=== PATIENT | female | born 1975 | race Caucasian/White ===

== ENCOUNTER → 2016-04-17 | Outpatient (CLI) | payer OTHER ==
[~2016-04-17] MED LIST: BACL10TA PO; BCPILLS PO; BUPR200T2 PO; CHOL2000 PO; CHOL4POW4 PO; CIPR-255 PO; ESCI1TAB10 PO; HYDR-5688 PO; HYDR200T5 PO; LEFL20TA PO; LISD30CA4 PO; LORA-741 PO; MAXALT; MELO7.5T5 PO; METO-157 PO; ONDA4TAB10 SL; PRD/1 PO; PRED20TA PO; PREG1CAP28 PO; PREG1CAP70 PO; PRLSR20 PO; PROM25TA9 PO; SUCR5SUS PO; VOLTAREN TOP
--- NOTE | 2016-04-17 12:53 | DIAGNOSTIC IMAGING REPORT ---
ABDOMINAL ULTRASOUND COMPLETE HISTORY: Pain. Nausea. RUQ PAIN,NAUSEA,VOMITING. COMPARISON: None. FINDINGS: Pancreas: The pancreas demonstrates a normal echotexture. Liver: Unremarkable. Gallbladder: 2 cm gallstone region of the gallbladder neck. Gallbladder wall normal in terms of thickness. No pericholecystic fluid CBD: 3 mm Kidneys: No hydronephrosis. Spleen: Normal in size. Aorta: Normal in caliber. IVC: Patent. IMPRESSION: Gallstones within the gallbladder lumen. Normal caliber bile duct. Otherwise negative study Electronically signed by: Jeremías Hernandez M.D. 04/17/2016 12:51 PM Dictated Date/Time: 04/17/2016 12:49 PM
[2016-04-17 13:32] LABS: MEAN CELL VOLUME 91.1 fL (80-100); MEAN CORPUSCULAR HGB CONC 31.8 g/dl (32-36); MEAN PLATELET VOLUME 10.8 fL (7.4-10.4); PLATELET COUNT 282 K/uL (130-400); RED BLOOD COUNT 4.28 M/uL (4.2-5.4); WHITE BLOOD COUNT 6.18 K/uL (4.8-10.8)
[2016-04-17 13:48] LABS: ALT/SGPT 26 U/L (12-78); AST/SGOT 11 U/L (15-37); BLOOD UREA NITROGEN 6 mg/dl (7-18); BUN/CREATININE RATIO 9.2 (10-20); CALCIUM 8.5 mg/dl (8.5-10.1); CARBON DIOXIDE 30 mmol/L (21-32); CHLORIDE 109 mmol/L (98-107); CREATININE 0.69 mg/dl (0.60-1.20); GLUCOSE 87 mg/dl (70-99); POTASSIUM 3.8 mmol/L (3.5-5.1); SODIUM 144 mmol/L (136-145)
[2016-04-17 13:51] LABS: ALB/GLOB RATIO 1.3 (0.9-2); ALKALINE PHOSPHATASE 48 U/L (45-117); C-REACTIVE PROTEIN < 0.29 mg/dl (0-0.29)
== END | disposition home or self-care (01) ==
LOC: C.ULTRBC 09:36
PROVIDERS: ATTEND Family Medicine
DX: R10.11 Right upper quadrant pain (principal); R11.10 Vomiting, unspecified

== ENCOUNTER 2016-04-21 18:51 | Observation (INO) | payer OTHER ==
[~2016-04-21] VITALS: Ht 165.1 cm; Wt 84.4 kg
[~2016-04-21 18:51] MED LIST changes: -BACL10TA PO; -CHOL2000 PO; -CHOL4POW4 PO; -CIPR-255 PO; -ESCI1TAB10 PO; -HYDR-5688 PO; -HYDR200T5 PO; -LEFL20TA PO; -LORA-741 PO; -MELO7.5T5 PO; -METO-157 PO; -ONDA4TAB10 SL; -PRD/1 PO; -PRED20TA PO; -PREG1CAP28 PO; -PREG1CAP70 PO; -PRLSR20 PO; -PROM25TA9 PO; -SUCR5SUS PO; -VOLTAREN TOP
[2016-04-21 20:00] VITALS: BP 116/78; PULSE 63; TEMP 37.1; O2SAT 100; Ht 165.1 cm; Wt 84.4 kg
[2016-04-21] MEDS ORDERED: ALUMINUM/MAGNESIUM/SIMETH (MAALOX MAX) 30 ML UDC PO PRN (20:30)
[2016-04-21] MEDS ORDERED: ZOLPIDEM TARTRATE 5 MG TAB PO PRN (20:30)
[2016-04-21] MEDS ORDERED: SUCRALFATE 1 GM/10 ML UDC PO ONE (20:45)
--- NOTE | 2016-04-21 20:52 | History and Physical ---
History & Physical Date of Service Apr 21, 2016. History & Physical epigastric pain , nausea, possible biliary dyskinesia, or gastritis, or PUD new right scapular area muscle pain , reproducible, likely musculoskeletal, tylenol as needed for pain I ordered Ddimer, and Ce and tn, b/c hx of lupus and is on OCP for contraception which incresed the risks of thromboembolic disease HIDA Scan if positive will have surgeon consult, if neg will need GI consult, not order yet [id number]
[2016-04-21] MEDS: ACETAMINOPHEN 325 MG TAB PO PRN (20:53)
[2016-04-21] MEDS ORDERED: MELOXICAM 7.5 MG TAB PO PRN (21:00)
[2016-04-21] MEDS ORDERED: IV FLUIDS COMPLETED PRN (21:00)
[2016-04-21] MEDS: HYDROXYCHLOROQUINE SULFATE 200 MG TAB PO SCH (21:00)
[2016-04-21] MEDS ORDERED: PATIENT'S HEIGHT AND/OR WEIGHT NEEDED SCH (21:00)
[2016-04-21] MEDS: PREGABALIN 150 MG CAP PO SCH (21:00)
[2016-04-21] MEDS: ESCITALOPRAM OXALATE 20 MG TAB PO SCH (21:00)
[2016-04-21] MEDS ORDERED: CONSULT PHARMACY STA (21:03)
[2016-04-21] MEDS ORDERED: RANITIDINE HCL 150 MG TAB PO ONE (21:15)
[2016-04-21] MEDS ORDERED: PANTOprazole SOD 40 MG TAB PO ONE (21:15)
[2016-04-21] MEDS: LEFLUNOMIDE 10 MG TAB PO SCH (21:15)
[2016-04-21 21:37] LABS: INR 1.1 (0.9-1.1); PARTIAL THROMBOPLASTIN RATIO 1.1; PROTHROMBIN TIME (PATIENT) 11.6 SECONDS (9.0-12.0)
[2016-04-21] MEDS: ONDANSETRON INJ 2 MG/ML 2 ML VIAL IV PRN (21:39)
[2016-04-21 21:56] LABS: THYROID STIMULATING HORMONE 0.714 uIu/ml (0.300-4.500)
--- NOTE | 2016-04-21 22:15 | HISTORY & PHYSICAL EXAMINATION ---
DATE OF ADMISSION: 04/21/2016 This is observation H\T\P, 20 minutes. CHIEF COMPLAINT: Epigastric pain, nausea. HISTORY OF PRESENT ILLNESS: The patient is a 41-year-old white female with a significant past medical history of lupus, venous insufficiency and depression who is direct admission because of the above chief complaint. The patient reported epigastric pain associated with nauseation which was about 10-12 days ago. Initially felt it was possible virus gastroenteritis, kids at home had the same conditions. . No vomiting, no diarrhea. Sometimes has constipation. However, the symptoms of her nauseation and epigastric pain persist for several days. Has been treated with ranitidine 150 mg p.o. b.i.d., started about 1 week ago. Also, adding in omeprazole 20 mg p.o. b.i.d. The symptoms are not improved. Tried some Zofran and Maalox without help. When I interviewed with the her, she reports the food makes symptoms little bit worse. The epigastric pain is difficult to say what kind of pain, such as dull pain, or full pain, or sharp pain. No heartburn and acid reflux, but decreased appetite. The patient has been followed with PCP 3-4 days ago. Checked labs including CBC, BMP, CRP and was not remarkable. Right upper quadrant ultrasound was done. It was unremarkable except gallstone but there was no wall thickening, no common bile duct dilatations. Today, the patient reported onset of dull right periscapular pain which has been getting worse as the day progressed. She reported ongoing nauseation, ongoing diffuse upper abdominal pain. Denied vomiting, denied diarrhea or constipation. Denied fever or chills. Denied chest pain, palpitation, lower extremity swelling. Denied cough, sputum, shortness of breath or hemoptysis. Denied dizziness. Denied dysuria, urgency and frequencies. Denied skin rashes. PAST MEDICAL HISTORY: 1. Like I mentioned in the above, includes lupus which she was diagnosed in 2013. 2. Venous insufficiency. 3. Depression. PAST SURGICAL HISTORY: Appendectomy and wisdom teeth removal. SOCIAL HISTORY: Denied tobacco abuse disorder, denied alcohol abuse. Denied illicit drug abuse. 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 FAMILY HISTORY: Father has hypertension, dyslipidemia and impaired glucose tolerance. Mom has osteoarthritis, hypothyroidism, hyperlipidemia, impaired glucose tolerance, and venous insufficiency. ALLERGIES: No known drug allergies. MEDICATIONS: At home include: 1. Leflunomide 20 mg p.o. at bedtime. 2. Plaquenil 400 mg p.o. at bedtime. 3. Prednisone 2.5 mg p.o. at bedtime. 4. Lexapro 20 mg p.o. at bedtime. 5. Vitamin D 2000 international units p.o. at bedtime. 6. Lyrica 150 mg p.o. at bedtime. 7. Meloxicam 15 mg p.o. daily p.r.n. for the pain. 8. Omeprazole 20 mg p.o. b.i.d. 9. Ranitidine 150 mg p.o. b.i.d. 10. Zofran 4 mg p.o. q. 6 hours p.r.n. for nauseation. PHYSICAL EXAMINATION: VITAL SIGNS: Temperature 37.8, pulse 66, respiratory rate 18, blood pressure 130/65. GENERAL: Young female, awake, alert and orientated, conversational and pleasant, looks tired. HEAD: Normocephalic. EYES: Pupils equal, round, responds to light. Conjunctivae nonicterus. EARS: Ear was normal. NOSE: Normal. NECK: Supple. Thyroid, no enlargement. Trachea midline. HEART: Regular rhythm. S1, S2, has no murmur. LUNGS: Decreased breathing sounds. There was no wheezing, rhonchi or crackle. ABDOMEN: Soft and mild epigastric deep tender in palpation. Bowel sound was positive. Bilateral CVA were nontender. GENITOURINARY AND RECTAL: Deferred. EXTREMITIES: Bilateral lower extremity, no swelling. Homans sign was negative. Calf was nontender. SKIN: Has no rashes. MUSCULOSKELETAL: Right shoulder, no limited range of motion but has mild right scapular pain with range of motion of the shoulder. LABORATORY STUDIES: Recent labs on 04/17/2016: WBC 6.1, hemoglobin 12.4, platelets 282. Sodium 144, potassium 3.8. BUN 6, creatinine 0.6. Random blood glucose 86. AST 11, ALT 26, alkaline phosphate 28. Cardiac enzyme troponin was not done. CRP was less than 0.29, total protein 6.6, albumin 3.7. Imaging studies on 04/17/2016: Right upper quadrant ultrasound shows gallstones within the gallbladder lumen. Normal caliber bile duct, otherwise negative studies, but there was a 2 cm gallstone in the region of gallbladder neck. ASSESSMENT AND PLAN: A 41-year-old white female with the conditions below: 1. Epigastric pain, nauseation associated with a 2 cm gallstone in the region of gallbladder neck. The differential diagnosis includes gastroesophageal reflux disease, gastritis, gallbladder disease, gallbladder stone, and dyskinesia of the biliary system or peptic ulcerative disease. The patient's symptoms not improved with PPI and Zantac. We will observe in the hospital. 2. Right scapula muscle ache. 3. History of lupus, depression. We will give Carafate p.o. Ordered a HIDA scan.The patient reported right scapula muscle ache. I will order 1 D-dimer to rule out thromboembolic disease. Because the epigastric pain comes and goes, I ordered 1 set of cardiac enzyme / troponin to have further studies. Will continue on the home medications for lupus, anxiety and depression. new right scapular area muscle pain , reproducible, likely musculoskeletal, tylenol as needed for pain I ordered Ddimer, and Ce and tn, b/c hx of lupus and is on OCP for contraception which increased the risks of thromboembolic disease HIDA Scan if positive will have surgeon consult, if neg will need GI consult, not order yet Deep venous thrombosis prophylaxis will be SCD plus Lovenox. GI prophylaxis is covered. Discussed with patient and family about the care plan. I answered all the questions. BERNIE
[2016-04-22 00:20] VITALS: BP 110/68; PULSE 65; TEMP 37; O2SAT 95
[2016-04-22 06:02] LABS: HEMATOCRIT 36.3 % (37-47); MEAN CELL VOLUME 88.1 fL (80-100); MEAN CORPUSCULAR HEMOGLOBIN 28.6 pg (25-34); MEAN CORPUSCULAR HGB CONC 32.5 g/dl (32-36); MEAN PLATELET VOLUME 9.3 fL (7.4-10.4); PLATELET COUNT 246 K/uL (130-400); RED BLOOD COUNT 4.12 M/uL (4.2-5.4)
[2016-04-22 06:39] LABS: CREATININE 0.79 mg/dl (0.60-1.20)
[2016-04-22 07:21] VITALS: BP 111/71; PULSE 59; TEMP 37; O2SAT 96
[2016-04-22] MEDS ORDERED: BuPROPion SR 100 MG TABCR PO SCH (08:00)
[2016-04-22] MEDS ORDERED: CHOLECALCIFEROL 1000 INTER.UNIT TAB PO SCH (08:00)
[2016-04-22] MEDS ORDERED: LISDEXAMFETAMINE DIMESYLATE 30 MG PO SCH (08:00)
[2016-04-22] MEDS ORDERED: ENOXAPARIN 40 MG/0.4 ML SYR SQ SCH ×2 (08:00→21:00)
[2016-04-22] MEDS: SUCRALFATE 1 GM/10 ML UDC PO SCH ×4 (08:00→19:49)
[2016-04-22] MEDS ORDERED: PANTOprazole SOD 40 MG TAB PO SCH (08:00)
[2016-04-22 09:16] LABS: ALKALINE PHOSPHATASE 46 U/L (45-117); ALT/SGPT 20 U/L (12-78); AST/SGOT 10 U/L (15-37)
--- NOTE | 2016-04-22 11:25 | Family Medicine Progress Note ---
Progress Note Date of Service Apr 22, 2016. Subjective Pt evaluation today including: conversation w/ patient, physical exam, chart review, lab review Pain: epigastric pain PO Intake: NPO Voiding: no voiding problems 41 y/o f with PMH of lupus , Venous insufficiency here with c/o epigastric pain which started about 10 days ago and also started to have scapular pain on the right side 2 days ago. continues to have epigastric and RUQ pain, 6/10, with nausea but denies vomiting , diarrhea. last BM was yesterday. no urinary s/s, No vaginal discharge Constitutional: No chills, No fever Eyes: No worsening of vision ENT: No hearing loss Respiratory: No cough, No shortness of breath, No sputum, No wheezing Cardiovascular: No chest pain Abdomen: + nausea, + pain, No GI bleeding, No constipation, No diarrhea, No vomiting Female : No dysuria Neurologic: No memory loss Heme: No abnormal bleeding/bruising Medications Current Inpatient Medications Medications (Trade) Dose Ordered Sig/Lisa Route Start Time Stop Time Status Last Admin Dose Admin Enoxaparin Sodium (Lovenox Inj) 40 mg QAM SQ 04/22/16 08:00 05/22/16 07:59 Acetaminophen (Tylenol Tab) 650 mg Q4H PRN PO 04/21/16 20:30 05/21/16 20:29 04/21/16 20:53 650 MG Al Hydrox/Mg Hydrox/Simethicone (Maalox Max Susp) 15 ml Q4H PRN PO 04/21/16 20:30 05/21/16 20:29 Magnesium Hydroxide (Milk Of Magnesia Susp) 30 ml Q6H PRN PO 04/21/16 20:30 05/21/16 20:29 Polyethylene (Miralax Powder Packet) 17 gm DAILY PRN PO 04/21/16 20:45 05/21/16 20:44 Zolpidem Tartrate (Ambien Tab) 5 mg HSZ PRN PO 04/21/16 20:30 05/21/16 20:29 Ondansetron HCl (Zofran Inj) 4 mg Q6H PRN IV 04/21/16 20:30 05/21/16 20:29 04/21/16 21:39 4 MG Sucralfate (Carafate Susp) 1 gm QID PO 04/22/16 08:00 05/22/16 07:59 Miscellaneous (Iv Fluids Completed) 1 ea PRN PRN N/A 04/21/16 21:00 04/21/17 20:59 Miscellaneous Information (Order Awaiting Action) 1 ea QS N/A 04/22/16 00:00 05/22/16 00:00 Hydroxychloroquine Sulfate (Plaquenil Tab) 400 mg HS PO 04/21/16 21:00 05/21/16 20:59 Prednisone (PredniSONE TAB) 2.5 mg HS PO 04/21/16 21:00 05/21/16 20:59 Escitalopram Oxalate (Lexapro Tab) 20 mg HS PO 04/21/16 21:00 05/21/16 20:59 Cholecalciferol (Vitamin D Tab) 2,000 inter.unit QAM PO 04/22/16 08:00 05/22/16 07:59 Pregabalin (Lyrica Cap) 150 mg HS PO 04/21/16 21:00 05/21/16 20:59 Meloxicam (Mobic Tab) 15 mg QAM PRN PO 04/21/16 21:00 05/21/16 20:59 Pantoprazole Sodium (Protonix Tab) 40 mg QAM PO 04/22/16 08:00 05/22/16 07:59 Ranitidine HCl (zANTac TAB) 150 mg BID PO 04/22/16 08:00 05/22/16 07:59 Leflunomide (Arava) 20 mg HS PO 04/21/16 21:15 05/21/16 21:14 Objective Vital Signs Date Time Temp Pulse Resp B/P Pulse Ox O2 Delivery O2 Flow Rate FiO2 04/22/16 08:00 Room Air 04/22/16 07:21 37.0 59 16 111/71 96 Room Air 04/22/16 00:20 37.0 65 20 110/68 95 Room Air 04/22/16 00:00 Room Air 04/21/16 20:00 37.1 63 20 116/78 100 Room Air Physical Exam General Appearance: WD/WN, no apparent distress Eyes: normal inspection ENT: normal ENT inspection, hearing grossly normal Neck: supple Respiratory/Chest: chest non-tender, lungs clear, normal breath sounds Cardiovascular: regular rate, rhythm Abdomen: normal bowel sounds, soft, + tenderness (in Right side of abdomen especially RUQ) Extremities: no pedal edema Neurologic/Psychiatric: alert, normal mood/affect, oriented x 3 Skin: normal color Laboratory Results 04/22/16 05:24 04/22/16 05:24 Test 04/21/16 20:21 04/21/16 21:15 04/22/16 05:24 Creatine Kinase MB Ratio (0-3.0) Prothrombin Time 11.6 SECONDS (9.0-12.0) Prothromb Time International Ratio 1.1 (0.9-1.1) Activated Partial Thromboplast Time 27.8 SECONDS (21.0-31.0) Partial Thromboplastin Ratio 1.1 D-Dimer < 190 ug/L FEU (0-500) Creatine Kinase MB 1.0 ng/ml (0.5-3.6) Troponin I < 0.015 ng/ml (0-0.045) Thyroid Stimulating Hormone (TSH) 0.714 uIu/ml (0.300-4.500) Red Blood Count 4.12 M/uL (4.2-5.4) Mean Corpuscular Volume 88.1 fL (80-100) Mean Corpuscular Hemoglobin 28.6 pg (25-34) Mean Corpuscular Hemoglobin Concent 32.5 g/dl (32-36) RDW Standard Deviation 46.6 fL (36.4-46.3) RDW Coefficient of Variation 14.4 % (11.5-14.5) Mean Platelet Volume 9.3 fL (7.4-10.4) Est Creatinine Clear Calc Drug Dose 101.6 ml/min Estimated GFR () 108.5 Estimated GFR (Non- 93.6 Total Bilirubin 0.4 mg/dl (0.2-1) Direct Bilirubin < 0.1 mg/dl (0-0.2) Aspartate Amino Transf (AST/SGOT) 10 U/L (15-37) Alanine Aminotransferase (ALT/SGPT) 20 U/L (12-78) Alkaline Phosphatase 46 U/L (45-117) Total Protein 6.2 gm/dl (6.4-8.2) Albumin 3.4 gm/dl (3.4-5.0) Lipase 122 U/L (73-393) Assessment and Plan 41 y/o F with PMH of lupus, venous insufficiency admitted for RUQ pain radiating to scapula. RUQ pain and epigastric pain: - Troponin negative, D-dimer WNL - LFTs, Lipase WNL - US GB 04/17: Gallstones within the gallbladder lumen. Normal caliber bile duct. Otherwise negative study - HIDA today: 1. No evidence for cystic duct obstruction. 2. Gallbladder ejection fraction calculated to be 32 %. This is considered mildly low - Zofran for nausea - Consult General surgery Depression: - Continue Lexapro 20 mg H/o lupus: - Continue prednisone, Lyrica, leflunomide DVT prophylaxis: Full code Disposition: Med/surg Resident Physician Supervision Note: I interviewed and examined the patient. Discussed with Dr. Davenport and agree with findings and plan as documented in the note. Any exceptions or clarifications are listed here: Pleasant 41-year-old female admitted overnight with a 10-14 day history of worsening nausea and right sided abdominal pain. Blood count, blood chemistries , and liver function studies were unremarkable. An outpatient ultrasound of the right upper quadrant showed a 2 cm gallstone in the neck of the gallbladder and a HIDA scan completed today showed a slightly decreased ejection fraction at 32%. It is noted that her symptoms continue despite aggressive treatment for acid reflux including a proton pump inhibitor and H2 piero. Upon exam, the patient had right upper quadrant tenderness. She had no rebound or guarding. I discussed the case with general surgery. Given the constellation of symptoms and findings on the ultrasound, it is believed that the gallstone is indeed the cause of her symptoms. She has been consented and orders are written for planned laparoscopic cholecystectomy tomorrow. Documented By: Memo Tian
[2016-04-22] MEDS ORDERED: SINCALIDE INJ 1.7 MCG in SODIUM CHLORIDE 0.9% 100ML 100 ML IV SCH (11:30)
--- NOTE | 2016-04-22 12:56 | DIAGNOSTIC IMAGING REPORT ---
NUCLEAR MEDICINE HEPATOBILIARY SCAN WITH EJECTION FRACTION HISTORY: Pain. Dyspepsia. epigastric pain , nausea, possible biliary dyskinesia COMPARISON: None. TECHNIQUE: Immediately following the intravenous administration of 5.5 mCi Tc-99m Choletec, dynamic anterior abdominal imaging pre/post 1.7 mcg of Kinevac was performed. FINDINGS: Uniform hepatic tracer accumulation is shown. Prompt intrahepatic biliary excretion is seen. The gallbladder, common bile duct, and small bowel are all visualized by 30 minutes minutes. This appearance represents the normal sequence of biliary excretion. The gallbladder ejection fraction following administration of Kinevac was 32 % (normal >35%). IMPRESSION: 1. No evidence for cystic duct obstruction. 2. Gallbladder ejection fraction calculated to be 32 %. This is considered mildly low Electronically signed by: Jeremías Hernandez M.D. 04/22/2016 12:54 PM Dictated Date/Time: 04/22/2016 12:52 PM
[2016-04-22] MEDS: RANITIDINE HCL 150 MG TAB PO SCH ×2 (13:05→19:53)
[2016-04-22] MEDS: ACETAMINOPHEN 325 MG TAB PO PRN (13:06)
[2016-04-22] MEDS: ONDANSETRON INJ 2 MG/ML 2 ML VIAL IV PRN ×2 (13:09→19:47)
[2016-04-22] MEDS ORDERED: NURSING VERBAL MED ORDER ONE (14:15)
--- NOTE | 2016-04-22 15:23 | Surgery Progress Note ---
Surgery Progress Note Date of Service Apr 22, 2016. Subjective see dictated consent Objective Vital Signs: Date Time Temp Pulse Resp B/P Pulse Ox O2 Delivery O2 Flow Rate FiO2 04/22/16 08:00 Room Air 04/22/16 07:21 37.0 59 16 111/71 96 Room Air 04/22/16 00:20 37.0 65 20 110/68 95 Room Air 04/22/16 00:00 Room Air 04/21/16 20:00 37.1 63 20 116/78 100 Room Air Laboratory Results: Results Past 24 Hours Test 04/21/16 20:21 04/21/16 21:15 04/22/16 05:24 Range/Units Creatine Kinase MB Ratio 0-3.0 Prothrombin Time 11.6 9.0-12.0 SECONDS Prothromb Time International Ratio 1.1 0.9-1.1 Activated Partial Thromboplast Time 27.8 21.0-31.0 SECONDS Partial Thromboplastin Ratio 1.1 D-Dimer < 190 0-500 ug/L FEU Creatine Kinase MB 1.0 0.5-3.6 ng/ml Troponin I < 0.015 0-0.045 ng/ml Thyroid Stimulating Hormone (TSH) 0.714 0.300-4.500 uIu/ml White Blood Count 6.30 4.8-10.8 K/uL Red Blood Count 4.12 4.2-5.4 M/uL Hemoglobin 11.8 12.0-16.0 g/dL Hematocrit 36.3 37-47 % Mean Corpuscular Volume 88.1 80-100 fL Mean Corpuscular Hemoglobin 28.6 25-34 pg Mean Corpuscular Hemoglobin Concent 32.5 32-36 g/dl RDW Standard Deviation 46.6 36.4-46.3 fL RDW Coefficient of Variation 14.4 11.5-14.5 % Platelet Count 246 130-400 K/uL Mean Platelet Volume 9.3 7.4-10.4 fL Creatinine 0.79 0.60-1.20 mg/dl Est Creatinine Clear Calc Drug Dose 101.6 ml/min Estimated GFR () 108.5 Estimated GFR (Non- 93.6 Total Bilirubin 0.4 0.2-1 mg/dl Direct Bilirubin < 0.1 0-0.2 mg/dl Aspartate Amino Transf (AST/SGOT) 10 15-37 U/L Alanine Aminotransferase (ALT/SGPT) 20 12-78 U/L Alkaline Phosphatase 46 45-117 U/L Total Protein 6.2 6.4-8.2 gm/dl Albumin 3.4 3.4-5.0 gm/dl Lipase 122 73-393 U/L Assessment & Plan 04/22/16- for laparoscopic cholecystectomy tomorrow am
--- NOTE | 2016-04-22 15:52 | Anesthesiology Progress Note ---
Anesthesia Progress Note Date of Service Apr 22, 2016. Progress Notes Patient to have l/s camilo tomorrow, reviewed history and spoke with patient, no contraindications from anesthesia perspective.
--- NOTE | 2016-04-22 15:52 | SURGICAL CONSULTATION ---
DATE OF CONSULTATION: 04/22/2016 DATE OF CONSULTATION: 04/22/2016. REASON FOR CONSULTATION: Abdominal pain and nausea. HISTORY OF PRESENT ILLNESS: The patient is a 41-year-old female who has been having epigastric pain and nausea over the past 7-10 days, which has not really responded to antacid medications. She did undergo ultrasound examination which showed a distended gallbladder with a 2 cm stone in the region of the neck of the gallbladder with no thickening. She also underwent gallbladder HIDA scan with ejection fraction showing gallbladder visualization, but an ejection fraction of 32%. PAST MEDICAL HISTORY: Her other history includes history of lupus, appendectomy, wisdom teeth extraction. ALLERGIES: No known allergies. SOCIAL AND FAMILY HISTORY: Essentially noncontributory. MEDICATIONS: She does take medications including prednisone, Lexapro, omeprazole, ranitidine. REVIEW OF SYSTEMS: Please see HPI for positive review. Ten other systems reviewed and negative. PHYSICAL EXAMINATION: GENERAL: Shows generally awake and alert patient, very responsive in no distress. HEAD: Normocephalic. EYES: Showed normal sclerae. SKIN: Shows no rashes. NECK: Supple. LUNGS: Show normal inspiration with no respiratory distress. HEART: Regular rate and rhythm. ABDOMEN: Soft. EXTREMITIES: Without edema. I did review her ultrasound and HIDA scan. ASSESSMENT AND PLAN: A 41-year-old female with evidence of a large gallstone in the region of the neck of the gallbladder with symptoms typical of what appears to be biliary colic at this point. I have discussed with the patient and her laparoscopic cholecystectomy including complications. They do understand and do wish to proceed.
[2016-04-22 15:57] VITALS: BP 108/72; PULSE 58; TEMP 37.4; O2SAT 96
[2016-04-22] MEDS: CEFOXITIN IV 1,000 MG in DEXTROSE 5% 50ML 50 ML IV SCH (16:25)
[2016-04-22] MEDS: CHOLECALCIFEROL 1000 INTER.UNIT TAB PO SCH (19:51)
[2016-04-22] MEDS: PANTOprazole SOD 40 MG TAB PO SCH (19:52)
[2016-04-22] MEDS: LEFLUNOMIDE 10 MG TAB PO SCH (19:54)
[2016-04-22] MEDS: ESCITALOPRAM OXALATE 20 MG TAB PO SCH (19:55)
[2016-04-22] MEDS: HYDROXYCHLOROQUINE SULFATE 200 MG TAB PO SCH (19:55)
[2016-04-22] MEDS: PREGABALIN 150 MG CAP PO SCH (20:01)
[2016-04-23] VITALS (7 sets, daily range): BP systolic 110–123; BP diastolic 71–80; PULSE 52–77; TEMP 36.9–37.3; O2SAT 95–98
[2016-04-23] MEDS: CEFOXITIN IV 1,000 MG in DEXTROSE 5% 50ML 50 ML IV SCH ×3 (01:00→16:10)
[2016-04-23 06:00] LABS: HEMATOCRIT 37.5 % (37-47); MEAN CELL VOLUME 87.4 fL (80-100); MEAN PLATELET VOLUME 9.6 fL (7.4-10.4); PLATELET COUNT 252 K/uL (130-400); RED BLOOD COUNT 4.29 M/uL (4.2-5.4)
[2016-04-23 06:38] LABS: BUN/CREATININE RATIO 10.7 (10-20); CALCIUM 8.5 mg/dl (8.5-10.1); CREATININE 0.74 mg/dl (0.60-1.20); POTASSIUM 3.6 mmol/L (3.5-5.1)
[2016-04-23] MEDS ORDERED: BUPIVACAINE 0.5 % 5 MG/1 ML MPF 30ML VIAL ONE (08:08)
[2016-04-23] MEDS ORDERED: PROPOFOL IV EMULSION 10 MG/ML 20 ML VIAL IV ONE (08:11)
--- NOTE | 2016-04-23 08:12 | Surgery Progress Note ---
Surgery Progress Note Date of Service Apr 23, 2016. Subjective pt is stable Objective Vital Signs: Date Time Temp Pulse Resp B/P Pulse Ox O2 Delivery O2 Flow Rate FiO2 04/23/16 07:41 36.9 67 16 120/78 97 Room Air 04/23/16 00:30 Room Air 04/23/16 00:22 37.1 52 20 123/80 98 Room Air 04/22/16 15:57 37.4 58 16 108/72 96 Room Air Laboratory Results: Results Past 24 Hours Test 04/23/16 05:16 Range/Units White Blood Count 6.80 4.8-10.8 K/uL Red Blood Count 4.29 4.2-5.4 M/uL Hemoglobin 12.0 12.0-16.0 g/dL Hematocrit 37.5 37-47 % Mean Corpuscular Volume 87.4 80-100 fL Mean Corpuscular Hemoglobin 28.0 25-34 pg Mean Corpuscular Hemoglobin Concent 32.0 32-36 g/dl RDW Standard Deviation 45.6 36.4-46.3 fL RDW Coefficient of Variation 14.2 11.5-14.5 % Platelet Count 252 130-400 K/uL Mean Platelet Volume 9.6 7.4-10.4 fL Sodium Level 143 136-145 mmol/L Potassium Level 3.6 3.5-5.1 mmol/L Chloride Level 110 98-107 mmol/L Carbon Dioxide Level 25 21-32 mmol/L Anion Gap 8.0 3-11 mmol/L Blood Urea Nitrogen 8 7-18 mg/dl Creatinine 0.74 0.60-1.20 mg/dl Est Creatinine Clear Calc Drug Dose 108.4 ml/min Estimated GFR () 117.5 Estimated GFR (Non- 101.3 BUN/Creatinine Ratio 10.7 10-20 Random Glucose 88 70-99 mg/dl Calcium Level 8.5 8.5-10.1 mg/dl Assessment & Plan 04/23/16- for lap camilo today 04/22/16- for laparoscopic cholecystectomy tomorrow am 04/22/16- for laparoscopic cholecystectomy tomorrow am
[2016-04-23] MEDS ORDERED: CISATRACURIUM BESYLATE IV SOLN 2 MG/ML 10 ML VIAL ONE (08:13)
[2016-04-23] MEDS ORDERED: MIDAZOLAM HCL 1 MG/ML 2ML VIAL ONE (08:13)
[2016-04-23] MEDS ORDERED: FENTANYL CITRATE INJ 50 MCG/1 ML 2 ML VIAL ONE ×2 (08:14)
[2016-04-23] MEDS: SUCRALFATE 1 GM/10 ML UDC PO SCH ×4 (08:53→21:43)
[2016-04-23] MEDS ORDERED: ONDANSETRON INJ 2 MG/ML 2 ML VIAL IV PRN ×2 (09:15→09:45)
[2016-04-23] MEDS ORDERED: NALOXONE HCL 0.4 MG/1 ML VIAL/CARP IV PRN (09:15)
[2016-04-23] MEDS ORDERED: LABETALOL HCL IV 5 MG/ML 20ML IV PRN (09:15)
[2016-04-23] MEDS ORDERED: EpHEDrine SULFATE INJ 50 MG/ML AMP IV PRN (09:15)
[2016-04-23] MEDS ORDERED: PROMETHAZINE HCL INJ 12.5 MG in SODIUM CHLORIDE 0.9% 50ML 50 ML IV PRN (09:15)
[2016-04-23] MEDS ORDERED: ATROPINE SULFATE 0.1 MG/ML 5ML SYR IV PRN (09:15)
[2016-04-23] MEDS ORDERED: FLUMAZENIL 0.1 MG/1 ML 10 ML VIAL IV PRN (09:15)
[2016-04-23] MEDS ORDERED: GLYCOPYRROLATE INJ 0.2 MG/ML VIAL ONE (09:37)
[2016-04-23] MEDS ORDERED: ONDANSETRON INJ 2 MG/ML 2 ML VIAL ONE (09:37)
[2016-04-23] MEDS ORDERED: DEXAMETHASONE SOD INJ 4 MG/ML VIAL ONE (09:37)
[2016-04-23] MEDS ORDERED: NEOSTIGMINE METHYLSULFATE 5 MG/5 ML SYR ONE (09:37)
--- NOTE | 2016-04-23 09:38 | DIAGNOSTIC IMAGING REPORT ---
INTRAOPERATIVE CHOLANGIOGRAM HISTORY: Post cholecystectomy. FLUOROSCOPY TIME: 18 seconds. FINDINGS: Fluoroscopy was provided for an intraoperative cholangiogram status post cholecystectomy. Contrast was injected through the cystic duct remnant. The common bile duct is normal in course and caliber. There are no filling defects seen within the common bile duct to suggest a retained stone. Contrast extends into the small bowel. There is no intrahepatic bile duct dilatation. IMPRESSION: Fluoroscopy provided for an intraoperative cholangiogram status post cholecystectomy. No filling defects within the common bile duct. Electronically signed by: Jeremísa Hernandez M.D. 04/23/2016 9:36 AM Dictated Date/Time: 04/23/2016 9:36 AM
--- NOTE | 2016-04-23 09:39 | [facility] Post Operative Brief Note ---
Immediate Operative Summary Operative Date Apr 23, 2016. Pre-Operative Diagnosis Large gallstone with biliary colic Post-Operative Diagnosis Acute and chronic Cholecystitis Procedure(s) Performed Laparoscopic Cholecystectomy with Cholangiogram Surgeon Dr. Andre Housing Inspector Surgeon(s) Antonino Munoz PA-C Estimated Blood Loss 15 cc Findings normal cholangiogram, adhesions, posterior wall edema Specimens A: Gall bladder and contents Anesthesia gen Complication(s) None Disposition Recovery Room / PACU
[2016-04-23] MEDS ORDERED: HYDROmorphone INJ 0.5 MG/0.5 ML SYR IV PRN (09:45)
[2016-04-23] MEDS ORDERED: PROMETHAZINE HCL INJ 25 MG in SODIUM CHLORIDE 0.9% 50ML 50 ML IV PRN (09:45)
[2016-04-23] MEDS ORDERED: HYDROmorphone INJ 1 MG/ML SYR IV PRN (09:45)
[2016-04-23] MEDS ORDERED: CONRAY 60% 50 ML VIAL INSTIL ONE (09:53)
[2016-04-23] MEDS: FENTANYL CITRATE INJ 50 MCG/1 ML 2 ML VIAL IV PRN ×4 (09:56→10:15)
[2016-04-23] MEDS ORDERED: METHYLPREDNISOLONE IV 10 MG in SYRINGE 0 ML IV ONE (10:00)
--- NOTE | 2016-04-23 10:20 | OPERATIVE REPORT ---
DATE OF OPERATION: 04/23/2016 NAME OF OPERATION: Laparoscopic cholecystectomy with intraoperative cholangiogram. PREOPERATIVE DIAGNOSIS: Biliary colic. POSTOPERATIVE DIAGNOSES: Same with acute and chronic cholecystitis and adhesions. STAFF SURGEON: Dr. Andre. ALUMINUM POOL INSTALLER: Estuardo Peralta. ANESTHESIA: General. PROCEDURE: The patient was brought in the operating room and placed on the operating table in supine position. Her abdomen was prepped and draped in usual fashion. Pneumatic stockings and orogastric tube were in place. 0.5% plain Marcaine was used to anesthetize all incisions. Incision was made above the umbilicus, carrying dissection down to the fascia, placing a Veress needle producing pneumoperitoneum. An 11 mm port placed at the umbilicus and then under visualization, three 5 mm ports were placed. At this point, the patient was placed in reverse Trendelenburg position, rotated to the left. On inspection, she had adhesions to the gallbladder indicating chronic inflammation. These were taken down, bile was aspirated from the gallbladder and dissection was carried out at the sharla hepatis, identifying the common bile duct, cystic duct and cystic artery. The patient did have evidence of chronic inflammation at the sharla hepatis indicating chronic cholecystitis. The cystic duct and cystic artery were clipped and transected and the gallbladder dissected away from the liver bed. She did have edema in the posterior wall consistent with acute cholecystitis. The gallbladder was placed into an Endobag. After appropriate irrigation and hemostasis, the Endobag was removed through the umbilical site. I did have to enlarge the fascial defects somewhat to remove the stone. At this point, the fascia at the umbilicus was closed using 0 PDS suture, subcutaneous tissue reapproximated using 2-0 plain catgut suture then the skin at the umbilicus closed using 5-0 Prolene suture. The other sites closed using subcuticular 4-0 Monocryl and Dermabond. The patient was transferred to recovery room in stable condition. I attest to the content of the Intraoperative Record and any orders documented therein. Any exceptio ns are noted below.
--- NOTE | 2016-04-23 10:25 | Anesthesiology Progress Note ---
Anesthesia Post Op Note Date & Time Apr 23, 2016 at 10:25 Vital Signs Pain Intensity: 4.0 Vital Signs Past 12 Hours Date Time Temp Pulse Resp B/P Pulse Ox O2 Delivery O2 Flow Rate FiO2 04/23/16 10:15 61 12 110/61 97 Nasal Cannula 2 04/23/16 10:05 66 14 115/65 97 Nasal Cannula 2 04/23/16 09:55 62 15 115/65 98 Nasal Cannula 2 04/23/16 09:49 37.4 63 15 109/56 100 Nasal Cannula 2 04/23/16 08:25 37.1 69 16 111/72 98 Room Air 04/23/16 07:41 36.9 67 16 120/78 97 Room Air 04/23/16 00:30 Room Air 04/23/16 00:22 37.1 52 20 123/80 98 Room Air Notes Mental Status: alert / awake / arousable, participated in evaluation Pt Amnestic to Procedure: Yes Nausea / Vomiting: adequately controlled Pain: adequately controlled Airway Patency, RR, SpO2: stable & adequate BP & HR: stable & adequate Hydration State: stable & adequate Anesthetic Complications: no major complications apparent
[2016-04-23] MEDS ORDERED: NURSING VERBAL MED ORDER ONE (11:15)
[2016-04-23] MEDS: RANITIDINE HCL 150 MG TAB PO SCH ×2 (11:41→21:45)
--- NOTE | 2016-04-23 14:36 | Progress Note ---
Subjective Date of Service: Apr 23, 2016. Subjective Pt evaluation today including: conversation w/ patient, conversation w/ family , physical exam, chart review, lab review, conversation w/ lean process deployment consultant, review of inpatient medication list Pain: mild abdominal pain PO Intake: improving 41-year-old female admitted with right upper quadrant abdominal pain. Outpatient workup had initially didn't find a 2 cm stone in the neck of the gallbladder. A HIDA scan after admission showed a slightly decreased ejection fraction of 32%. Given the constellation of the patient's symptoms along with the findings above, general surgery was consult did yesterday for consideration of a endoscopic cholecystectomy. The patient underwent the information surgery this morning and is seen in her medical bed after returning from the PACU. Operative findings include hints of acute on chronic cholecystitis. She notes some mild right upper quadrant discomfort. She denies any chest pain , shortness of breath, or shoulder pain. Review of Systems Constitutional: No chills, No fever Eyes: No problem reported ENT: No problem reported Respiratory: No cough, No dyspnea on exertion, No shortness of breath, No sputum Cardiac: No chest pain, No orthopnea Breast: No problem reported Abdomen: + pain, No constipation, No diarrhea, No nausea, No vomiting Musculoskeletal: No calf pain Psychiatric: No problem reported Heme: No problem reported All Other Systems: Reviewed and Negative Medications Medications (Trade) Dose Ordered Sig/Lisa Route Start Time Stop Time Status Last Admin Dose Admin Pantoprazole Sodium (Protonix Tab) 40 mg HS PO 04/22/16 21:00 05/22/16 07:59 04/22/16 19:52 40 MG Enoxaparin Sodium (Lovenox Inj) 40 mg HS SQ 04/22/16 21:00 04/23/16 09:49 DC 04/22/16 19:56 40 MG Cholecalciferol 2000 inter.unit 2,000 inter.unit HS PO 04/22/16 21:00 05/22/16 20:59 04/22/16 19:51 2,000 INTER.UNIT Cefoxitin Sodium/ Dextrose (Mefoxin IV/D5 50ml) 60 ml @ 100 mls/hr Q8H IV 04/22/16 16:00 05/02/16 15:59 04/23/16 02:04 100 MLS/HR Bupivacaine HCl (Marcaine 0.5% MPF Inj) 30 ml STK-MED ONCE .ROUTE 04/23/16 08:08 04/23/16 08:11 DC 04/23/16 08:08 10 ML Fentanyl Citrate (Fentanyl Inj) 25 mcg Q5M PRN IV 04/23/16 09:15 04/23/16 14:15 DC 04/23/16 10:15 25 MCG Ondansetron HCl (Zofran Inj) 4 mg ONE PRN IV 04/23/16 09:15 04/23/16 10:11 DC 04/23/16 09:50 4 MG Iothalamate Meglumine (Conray 60%) 5 ml ONE ONCE INSTIL 04/23/16 09:53 04/23/16 09:54 DC 04/23/16 09:53 5 ML Objective Vital Signs Date Time Temp Pulse Resp B/P Pulse Ox O2 Delivery O2 Flow Rate FiO2 04/23/16 11:39 37.3 66 16 118/75 98 Room Air 04/23/16 11:17 37.1 68 16 119/80 98 Nasal Cannula 2.0 04/23/16 11:00 98 Nasal Cannula 2.0 04/23/16 10:49 37.2 66 18 110/72 97 2.0 04/23/16 10:25 37.1 65 16 103/57 97 Nasal Cannula 2 04/23/16 10:15 61 12 110/61 97 Nasal Cannula 2 04/23/16 10:05 66 14 115/65 97 Nasal Cannula 2 04/23/16 09:55 62 15 115/65 98 Nasal Cannula 2 04/23/16 09:49 37.4 63 15 109/56 100 Nasal Cannula 2 04/23/16 08:25 37.1 69 16 111/72 98 Room Air 04/23/16 08:15 Room Air 04/23/16 07:41 36.9 67 16 120/78 97 Room Air 04/23/16 00:30 Room Air 04/23/16 00:22 37.1 52 20 123/80 98 Room Air 04/22/16 15:57 37.4 58 16 108/72 96 Room Air Physical Exam General Appearance: WD/WN, no apparent distress Eyes: normal inspection, PERRL, sclerae normal ENT: normal ENT inspection, hearing grossly normal Neck: supple, no adenopathy, no JVD Respiratory/Chest: chest non-tender, lungs clear, normal breath sounds Cardiovascular: regular rate, rhythm, no edema, no gallop Abdomen: soft Extremities: non-tender, normal inspection, no pedal edema Neurologic/Psychiatric: no motor/sensory deficits, alert, normal mood/affect, oriented x 3 Skin: normal color, warm/dry, no rash Laboratory Results Last 24 Hours Test 04/23/16 05:16 White Blood Count 6.80 K/uL Red Blood Count 4.29 M/uL Hemoglobin 12.0 g/dL Hematocrit 37.5 % Mean Corpuscular Volume 87.4 fL Mean Corpuscular Hemoglobin 28.0 pg Mean Corpuscular Hemoglobin Concent 32.0 g/dl RDW Standard Deviation 45.6 fL RDW Coefficient of Variation 14.2 % Platelet Count 252 K/uL Mean Platelet Volume 9.6 fL Sodium Level 143 mmol/L Potassium Level 3.6 mmol/L Chloride Level 110 mmol/L Carbon Dioxide Level 25 mmol/L Anion Gap 8.0 mmol/L Blood Urea Nitrogen 8 mg/dl Creatinine 0.74 mg/dl Est Creatinine Clear Calc Drug Dose 108.4 ml/min Estimated GFR () 117.5 Estimated GFR (Non- 101.3 BUN/Creatinine Ratio 10.7 Random Glucose 88 mg/dl Calcium Level 8.5 mg/dl Assessment and Plan 41-year-old female with right upper quadrant pain found to have a 2 cm gallstone in the neck of the gallbladder now status post endoscopic cholecystectomy. PLAN 1) slowly advance diet as tolerated. 2) resume home medications. 3) symptomatically medications for nausea and pain when necessary. 4) Lovenox for DVT prophylaxis. Continued [facility] stay due to: inadequate oral pain control Discharge planning: home
[2016-04-23] MEDS: HYDROCODONE/ACETAMOPHEN 5/325MG TAB PO PRN ×2 (16:06→21:43)
[2016-04-23] MEDS: ESCITALOPRAM OXALATE 20 MG TAB PO SCH (21:44)
[2016-04-23] MEDS: LEFLUNOMIDE 10 MG TAB PO SCH (21:45)
[2016-04-23] MEDS: HYDROXYCHLOROQUINE SULFATE 200 MG TAB PO SCH (21:48)
[2016-04-23] MEDS: CHOLECALCIFEROL 1000 INTER.UNIT TAB PO SCH (21:49)
[2016-04-23] MEDS: PANTOprazole SOD 40 MG TAB PO SCH (21:50)
[2016-04-23] MEDS: PREGABALIN 150 MG CAP PO SCH (21:55)
[2016-04-24 00:35] VITALS: BP 116/70; PULSE 58; TEMP 37; O2SAT 95
[2016-04-24] MEDS: CEFOXITIN IV 1,000 MG in DEXTROSE 5% 50ML 50 ML IV SCH ×3 (00:46→16:14)
[2016-04-24] MEDS: HYDROCODONE/ACETAMOPHEN 5/325MG TAB PO PRN ×5 (00:51→20:07)
[2016-04-24] MEDS: ONDANSETRON INJ 2 MG/ML 2 ML VIAL IV PRN ×2 (00:51→20:06)
--- NOTE | 2016-04-24 06:02 | Surgery Progress Note ---
Surgery Progress Note Date of Service Apr 24, 2016. Subjective No nausea, No vomiting had some mild pain last night- po pain meds tolerated some food Objective Vital Signs: Date Time Temp Pulse Resp B/P Pulse Ox O2 Delivery O2 Flow Rate FiO2 04/24/16 00:35 37.0 58 20 116/70 95 Room Air 04/24/16 00:00 Room Air 04/23/16 20:00 Room Air 04/23/16 16:10 Room Air 04/23/16 16:05 37.3 77 18 110/71 95 Room Air 04/23/16 11:39 37.3 66 16 118/75 98 Room Air 04/23/16 11:17 37.1 68 16 119/80 98 Nasal Cannula 2.0 04/23/16 11:00 98 Nasal Cannula 2.0 04/23/16 10:49 37.2 66 18 110/72 97 2.0 04/23/16 10:25 37.1 65 16 103/57 97 Nasal Cannula 2 04/23/16 10:15 61 12 110/61 97 Nasal Cannula 2 04/23/16 10:05 66 14 115/65 97 Nasal Cannula 2 04/23/16 09:55 62 15 115/65 98 Nasal Cannula 2 04/23/16 09:49 37.4 63 15 109/56 100 Nasal Cannula 2 04/23/16 08:25 37.1 69 16 111/72 98 Room Air 04/23/16 08:15 Room Air 04/23/16 07:41 36.9 67 16 120/78 97 Room Air General Appearance: no apparent distress Respiratory/Chest: no respiratory distress Abdomen: soft Incision(s): intact Laboratory Results: Results Past 24 Hours Test 04/24/16 05:11 Range/Units Assessment & Plan 04/24/16- s/p lap camilo w/ cholangiogram- had adhesions, acute and chronic inflammation. Cont IV atbx for now, supportive care- plan d/c tomorrow if cont to progress. Cholangiogram appeared nl 04/23/16- for lap camilo today 04/22/16- for laparoscopic cholecystectomy tomorrow am 04/23/16- for lap camilo today 04/22/16- for laparoscopic cholecystectomy tomorrow am
[2016-04-24 06:21] LABS: ALT/SGPT 43 U/L (12-78); AST/SGOT 23 U/L (15-37); BLOOD UREA NITROGEN 9 mg/dl (7-18); BUN/CREATININE RATIO 12.5 (10-20); CALCIUM 8.3 mg/dl (8.5-10.1); CARBON DIOXIDE 25 mmol/L (21-32); CHLORIDE 110 mmol/L (98-107); GLUCOSE 110 mg/dl (70-99); POTASSIUM 3.5 mmol/L (3.5-5.1); SODIUM 143 mmol/L (136-145)
[2016-04-24 06:23] LABS: ALB/GLOB RATIO 1.2 (0.9-2); ALKALINE PHOSPHATASE 46 U/L (45-117); PHOSPHORUS 3.2 mg/dl (2.5-4.9)
[2016-04-24 06:46] LABS: HEMATOCRIT 35.5 % (37-47); MEAN CELL VOLUME 87.4 fL (80-100); MEAN CORPUSCULAR HEMOGLOBIN 28.8 pg (25-34); MEAN PLATELET VOLUME 10.1 fL (7.4-10.4); PLATELET COUNT 251 K/uL (130-400); RED BLOOD COUNT 4.06 M/uL (4.2-5.4); WHITE BLOOD COUNT 14.18 K/uL (4.8-10.8)
[2016-04-24] MEDS: RANITIDINE HCL 150 MG TAB PO SCH ×2 (08:15→20:09)
[2016-04-24 08:25] VITALS: BP 108/71; PULSE 62; TEMP 37; O2SAT 97
[2016-04-24] MEDS: SUCRALFATE 1 GM/10 ML UDC PO SCH ×4 (08:45→20:00)
[2016-04-24] MEDS: ENOXAPARIN 40 MG/0.4 ML SYR SQ SCH (08:47)
[2016-04-24] MEDS: POLYETHYLENE (MIRALAX) 17 GM PACK PO PRN (09:30)
--- NOTE | 2016-04-24 11:15 | Family Medicine Progress Note ---
Progress Note Date of Service Apr 24, 2016. Subjective Pt evaluation today including: conversation w/ patient, physical exam, chart review, lab review Pain: has right shoulder pain PO Intake: good Voiding: no voiding problems had cholecystectomy yesterday, doing well but has right shoulder pain which is well controlled with medication. Constitutional: No chills, No fever ENT: No hearing loss Respiratory: No cough, No sputum Cardiovascular: No chest pain Abdomen: No nausea, No vomiting Musculoskeletal: + problem reported (right shoulder pain) Medications Current Inpatient Medications Medications (Trade) Dose Ordered Sig/Lisa Route Start Time Stop Time Status Last Admin Dose Admin Acetaminophen (Tylenol Tab) 650 mg Q4H PRN PO 04/21/16 20:30 05/21/16 20:29 04/22/16 13:06 650 MG Al Hydrox/Mg Hydrox/Simethicone (Maalox Max Susp) 15 ml Q4H PRN PO 04/21/16 20:30 05/21/16 20:29 Magnesium Hydroxide (Milk Of Magnesia Susp) 30 ml Q6H PRN PO 04/21/16 20:30 05/21/16 20:29 Polyethylene (Miralax Powder Packet) 17 gm DAILY PRN PO 04/21/16 20:45 05/21/16 20:44 04/24/16 09:30 17 GM Zolpidem Tartrate (Ambien Tab) 5 mg HSZ PRN PO 04/21/16 20:30 05/21/16 20:29 Ondansetron HCl (Zofran Inj) 4 mg Q6H PRN IV 04/21/16 20:30 05/21/16 20:29 04/24/16 00:51 4 MG Sucralfate (Carafate Susp) 1 gm QID PO 04/22/16 08:00 05/22/16 07:59 04/24/16 08:45 1 GM Miscellaneous (Iv Fluids Completed) 1 ea PRN PRN N/A 04/21/16 21:00 04/21/17 20:59 Miscellaneous Information (Order Awaiting Action) 1 ea QS N/A 04/22/16 00:00 05/22/16 00:00 Hydroxychloroquine Sulfate (Plaquenil Tab) 400 mg HS PO 04/21/16 21:00 05/21/16 20:59 04/23/16 21:48 400 MG Prednisone (PredniSONE TAB) 2.5 mg HS PO 04/21/16 21:00 05/21/16 20:59 04/23/16 21:48 2.5 MG Escitalopram Oxalate (Lexapro Tab) 20 mg HS PO 04/21/16 21:00 05/21/16 20:59 04/23/16 21:44 20 MG Pregabalin (Lyrica Cap) 150 mg HS PO 04/21/16 21:00 05/21/16 20:59 04/23/16 21:55 150 MG Meloxicam (Mobic Tab) 15 mg QAM PRN PO 04/21/16 21:00 05/21/16 20:59 Ranitidine HCl (zANTac TAB) 150 mg BID PO 04/22/16 08:00 05/22/16 07:59 04/24/16 08:15 150 MG Leflunomide (Arava) 20 mg HS PO 04/21/16 21:15 05/21/16 21:14 04/23/16 21:45 20 MG Pantoprazole Sodium (Protonix Tab) 40 mg HS PO 04/22/16 21:00 05/22/16 07:59 04/23/16 21:50 40 MG Cholecalciferol 2000 inter.unit 2,000 inter.unit HS PO 04/22/16 21:00 05/22/16 20:59 04/23/16 21:49 2,000 INTER.UNIT Cefoxitin Sodium/ Dextrose (Mefoxin IV/D5 50ml) 60 ml @ 100 mls/hr Q8H IV 04/22/16 16:00 05/02/16 15:59 04/24/16 08:09 100 MLS/HR Acetaminophen/ Hydrocodone Bitart (Whiting 5/325 Tab) 1 tab Q4 PRN PO 04/23/16 09:45 05/07/16 09:44 04/24/16 08:07 1 TAB Acetaminophen/ Hydrocodone Bitart 2 tab 2 tab Q4 PRN PO 04/23/16 09:45 05/07/16 09:44 Promethazine HCl/ Sodium Chloride (Phenergan Inj/ Nss 50ml) 51 ml @ 204 mls/hr Q6H PRN IV 04/23/16 09:45 05/23/16 09:44 Hydromorphone HCl (Dilaudid Inj) 0.5 mg Q3H PRN IV 04/23/16 09:45 05/07/16 09:44 Hydromorphone HCl (Dilaudid Inj) 1 mg Q3H PRN IV 04/23/16 09:45 05/07/16 09:44 Enoxaparin Sodium (Lovenox Inj) 40 mg DAILY SQ 04/24/16 08:00 05/24/16 07:59 04/24/16 08:47 40 MG Objective Vital Signs Date Time Temp Pulse Resp B/P Pulse Ox O2 Delivery O2 Flow Rate FiO2 04/24/16 08:25 37.0 62 16 108/71 97 Room Air 04/24/16 00:35 37.0 58 20 116/70 95 Room Air 04/24/16 00:00 Room Air 04/23/16 20:00 Room Air 04/23/16 16:10 Room Air 04/23/16 16:05 37.3 77 18 110/71 95 Room Air 04/23/16 11:39 37.3 66 16 118/75 98 Room Air 04/23/16 11:17 37.1 68 16 119/80 98 Nasal Cannula 2.0 Physical Exam General Appearance: WD/WN, no apparent distress Eyes: normal inspection ENT: normal ENT inspection, hearing grossly normal Neck: supple Respiratory/Chest: chest non-tender, no respiratory distress, no accessory muscle use Cardiovascular: regular rate, rhythm Abdomen: normal bowel sounds, soft, + pertinent finding (drain ) Extremities: non-tender Neurologic/Psychiatric: alert, normal mood/affect, oriented x 3 Skin: normal color Laboratory Results 04/24/16 05:11 04/24/16 05:11 Test 04/24/16 05:11 Red Blood Count 4.06 M/uL (4.2-5.4) Mean Corpuscular Volume 87.4 fL (80-100) Mean Corpuscular Hemoglobin 28.8 pg (25-34) Mean Corpuscular Hemoglobin Concent 33.0 g/dl (32-36) RDW Standard Deviation 45.8 fL (36.4-46.3) RDW Coefficient of Variation 14.3 % (11.5-14.5) Mean Platelet Volume 10.1 fL (7.4-10.4) Anion Gap 8.0 mmol/L (3-11) Est Creatinine Clear Calc Drug Dose 114.6 ml/min Estimated GFR () 125.6 Estimated GFR (Non- 108.4 BUN/Creatinine Ratio 12.5 (10-20) Calcium Level 8.3 mg/dl (8.5-10.1) Phosphorus Level 3.2 mg/dl (2.5-4.9) Magnesium Level 2.0 mg/dl (1.8-2.4) Total Bilirubin 0.5 mg/dl (0.2-1) Direct Bilirubin < 0.1 mg/dl (0-0.2) Aspartate Amino Transf (AST/SGOT) 23 U/L (15-37) Alanine Aminotransferase (ALT/SGPT) 43 U/L (12-78) Alkaline Phosphatase 46 U/L (45-117) Total Protein 6.2 gm/dl (6.4-8.2) Albumin 3.4 gm/dl (3.4-5.0) Globulin 2.8 gm/dl (2.5-4.0) Albumin/Globulin Ratio 1.2 (0.9-2) Assessment and Plan 41-year-old female with PMH of lupus , venous insufficiency with right upper quadrant pain found to have a 2 cm gallstone in the neck of the gallbladder s/p lap cholecystectomy Right shoulder pain - likely sec to gas - pain control s/p Lap cholecystectomy: - Supportive care - IV abx Depression: - Continue Lexapro 20 mg H/o lupus: - Continue prednisone, Lyrica, leflunomide DVT prophylaxis: Lovenox Full code Disposition: Med/surg likely dc tomorrow Resident Physician Supervision Note: I was present with Dr. Davenport during the history and exam. I discussed the case with the resident and agree with the findings and plan as documented in the note. Any exceptions or clarifications are listed here: 41-year-old female status post lap scopic cholecystectomy. She has been up and out of bed ambulating in the hallway. She complains of intermittent abdominal pain, controlled with oral analgesics, and right shoulder discomfort. She remains afebrile. Heart regular rate and rhythm. Lungs clear throughout with nonlabored respirations. tenderness is appreciated. Slight leukocytosis likely secondary to steroids. IMPRESSION 1) postoperative day #1 status post endoscopic cholecystectomy 2) right shoulder pain secondary to phrenic nerve irritation post laparoscopic received her 3) stable medical conditions as noted above. PLAN 1) pain control 2) advance diet 3) ambulation and hallway plus Lovenox for DVT prophylaxis. 4) discussed with general surgery, likely discharge tomorrow Documented By: Memo Tian
[2016-04-24 12:06] VITALS: BP 120/77; PULSE 68; TEMP 37; O2SAT 96
[2016-04-24 17:24] VITALS: BP 105/66; PULSE 62; TEMP 36.8; O2SAT 96
[2016-04-24] MEDS: HYDROXYCHLOROQUINE SULFATE 200 MG TAB PO SCH (20:08)
[2016-04-24] MEDS: CHOLECALCIFEROL 1000 INTER.UNIT TAB PO SCH (20:08)
[2016-04-24] MEDS: ESCITALOPRAM OXALATE 20 MG TAB PO SCH (20:09)
[2016-04-24] MEDS: PANTOprazole SOD 40 MG TAB PO SCH (20:09)
[2016-04-24] MEDS: LEFLUNOMIDE 10 MG TAB PO SCH (20:09)
[2016-04-24] MEDS: PREGABALIN 150 MG CAP PO SCH (20:16)
[2016-04-24] MEDS: MAGNESIUM HYDROXIDE SUSP 30 ML UDC PO PRN (20:16)
[2016-04-24 23:45] VITALS: BP 106/69; PULSE 61; TEMP 37; O2SAT 94
[2016-04-25] MEDS: CEFOXITIN IV 1,000 MG in DEXTROSE 5% 50ML 50 ML IV SCH ×3 (00:14→08:40)
[2016-04-25] MEDS: HYDROCODONE/ACETAMOPHEN 5/325MG TAB PO PRN ×2 (00:14→07:56)
[2016-04-25] MEDS ORDERED: HYDR-5688 PO (06:28)
[2016-04-25] MEDS ORDERED: CIPR-255 PO (06:28)
--- NOTE | 2016-04-25 06:31 | Discharge Instructions ---
Discharge Instructions Admission Reason for Admission: Abdominal Pain Discharge Discharge Diagnosis / Problem: acute and chronic cholecystitis Discharge Goals Goal(s): Decrease discomfort, Improve function, Improve disease control Activity Recommendations Activity Limitations: as noted below Lifting Limitations: no more than 10 pounds Exercise/Sports Limitations: until after follow-up appointment May Resume Sexual Activity: when tolerated Shower/Bathe: no limitations (may shower, no bath for 1 week) Driving or Machine Use: resume 3 days after discharge SPECIAL CARE INSTRUCTIONS: * Cover incisions and change daily for comfort/drainage. * May leave uncovered with dermabond * May use ibuprofen for pain as tolerated. * Expect some swelling and bruising. Call your doctor if: * Temperature above 101 degrees * Pain not relieved by pain medicine ordered * There is increased drainage or redness from any incision * You have any unanswered questions or concerns [phone]. FOLLOW UP VISIT: If not already scheduled, please call the office for a follow-up visit. for next week- some suture removal OFFICE PHONE NUMBER: Dr. Andre Office . Current Hospital Diet Patient's current hospital diet: Low Fat Diet Discharge Diet Recommended Diet: Regular Diet Procedures Procedures Performed: Laparoscopic Cholecystectomy with Cholangiogram Pending Studies Studies pending at discharge: no Medical Emergencies . Who to Call and When: Medical Emergencies: If at any time you feel your situation is an emergency, please call 911 immediately. . Non-Emergent Contact Non-Emergency issues call your: Primary Care Provider, Surgeon . "Provider Documentation" section prepared by Brayan Andre. VTE Core Measure Inpt VTE Proph given/why not?: Enoxaparin (Lovenox)SQ, SCD's
[2016-04-25] MEDS ORDERED: PROM25TA9 PO (06:38)
--- NOTE | 2016-04-25 06:47 | Surgery Progress Note ---
Surgery Progress Note Date of Service Apr 25, 2016. Subjective some mild nausea after dinner- seemed to do well overnight Objective Vital Signs: Date Time Temp Pulse Resp B/P Pulse Ox O2 Delivery O2 Flow Rate FiO2 04/25/16 00:00 Room Air 04/24/16 23:45 37.0 61 18 106/69 94 Room Air 04/24/16 17:24 36.8 62 18 105/66 96 Room Air 04/24/16 16:00 Room Air 04/24/16 12:06 37.0 68 16 120/77 96 Room Air 04/24/16 09:00 Room Air 04/24/16 08:25 37.0 62 16 108/71 97 Room Air General Appearance: no apparent distress Respiratory/Chest: no respiratory distress Abdomen: soft Incision(s): intact Assessment & Plan 04/25/16- I think she can be d/c home from surgical standpoint- scripts in chart, instr in computer- check in office next week for suture removal. 04/24/16- s/p lap camilo w/ cholangiogram- had adhesions, acute and chronic inflammation. Cont IV atbx for now, supportive care- plan d/c tomorrow if cont to progress. Cholangiogram appeared nl 04/23/16- for lap camilo today 04/22/16- for laparoscopic cholecystectomy tomorrow am 04/24/16- s/p lap camilo w/ cholangiogram- had adhesions, acute and chronic inflammation. Cont IV atbx for now, supportive care- plan d/c tomorrow if cont to progress. Cholangiogram appeared nl 04/23/16- for lap camilo today 04/22/16- for laparoscopic cholecystectomy tomorrow am
[2016-04-25] MEDS: ONDANSETRON INJ 2 MG/ML 2 ML VIAL IV PRN (07:48)
[2016-04-25] MEDS: MAGNESIUM HYDROXIDE SUSP 30 ML UDC PO PRN (08:40)
[2016-04-25] MEDS: POLYETHYLENE (MIRALAX) 17 GM PACK PO PRN (08:40)
[2016-04-25] MEDS: SUCRALFATE 1 GM/10 ML UDC PO SCH (08:41)
[2016-04-25] MEDS: RANITIDINE HCL 150 MG TAB PO SCH (08:41)
[2016-04-25] MEDS: ENOXAPARIN 40 MG/0.4 ML SYR SQ SCH (08:41)
[2016-04-25 09:26] VITALS: BP 103/69; PULSE 61; TEMP 36.5; O2SAT 97
--- NOTE | 2016-04-25 09:33 | Discharge Summary ---
Discharge Summary Date of Service Apr 25, 2016. Discharge Summary Admission Date: Apr 21, 2016 at 19:59 Discharge Date: Apr 25, 2016 Discharge Disposition: Home Principal Diagnosis: #1 cholecystitis #2 epigastric pain Secondary Diagnoses/Problems: #1 lupus #2 depression Procedures: Laparoscopic cholecystectomy with intraoperative cholangiogram Vaccinations: None Consultations: Gen. surgery, Dr. Brayan Andre Pending Studies/Follow-Up: None Medication Reconciliation New Medications: Ciprofloxacin Hcl (Cipro) 500 Mg Tab 1 TAB PO BID for 5 Days, #10 TAB Hydrocodone/Acetaminophen 5MG/325MG (Bicknell 5MG/325MG) Tab 1-2 TABLET PO q 6 hrs PRN for Pain, #30 TAB PRN PAIN Ondasetron Odt (Zofran Odt) 4 Mg Tab 4 MG SL Q6H for Nausea, #30 TAB Promethazine Hcl (Phenergan) 25 Mg Tab 25 MG PO Q6H PRN for Nausea, #10 TAB Continued Medications: Control Pills ( Control Pills) Tab 1 TAB PO DAILY, TAB Bupropion (Wellbutrin Sr) 200 Mg Ertab 200 MG PO DAILY, TAB [Maxalt] () PRN for Migraine Referrals At Discharge Follow up Referrals: Surgery Referral - Within 1-2 Weeks @ [facility]Department of Surgery with Brayan Andre M.D. Admission Information HPI (per Admitting provider): 41-year-old female presented to the emergency department noting a 7-10 day history of worsening epigastric and right upper quadrant abdominal pain. As an outpatient she underwent a ultrasound of the right upper quadrant which demonstrated a 2 cm gallstone in the neck of the gallbladder. The patient had been trialed on both a proton pump inhibitor and H2 blockers an outpatient, but despite this her symptoms persisted. The patient subsequently developed pain in the right scapular area and her epigastric abdominal pain worsened. For this reason, she presented to the hospital. Physical Exam (per Admitting): Discharge examination The patient is alert and oriented. She semireclined in her bed. No acute distress. HEENT extremities are pink and moist. Neck is supple. Trachea is midline. There is no jugular venous distention appreciated. Heart regular rate and rhythm. Lungs are clear throughout with nonlabored respirations. Extremities without calf tenderness or edema. Hospital Course The patient was admitted to the general medical floor. The patient underwent a HIDA scan the day after admission which demonstrated a low ejection fraction of 31%. This, combined with the 270 stone in the neck of the gallbladder, prompted a general surgery consultation. The patient was seen in consultation by Dr. Andre, he subsequently took the patient to the OR the following day for a laparoscopic cholecystectomy with intraoperative cholangiogram. The gallbladder was noted to have several adhesions and a generalized appearance suggesting acute on chronic cholecystitis. On postoperative day #1, the patient had mild nausea and abdominal pain but started to tolerate a bland diet. She was able to her in the hallway without difficulty. She noted the typical right short pain associated with laparoscopic procedures. On postoperative day #2, the patient had advanced her diet with only mild nausea but no vomiting. She denied any chest pain or shortness of breath. She denied any calf tenderness. She was seen by general surgery and cleared for discharge with prescriptions and follow-up as noted. Total time spent on discharge = This includes examination of the patient, discharge planning, medication reconciliation, and communication with other providers. Discharge Instructions #1 follow up with general surgery #2 Number to up with primary care physician, Dr. Garcia, as needed.
[2016-04-25] MEDS ORDERED: ONDA4TAB10 SL (09:35)
[2016-04-25 10:44] VITALS: BP 103/69; PULSE 61; TEMP 36.5; O2SAT 97
[2016-06-10] MEDS ORDERED: ESCI1TAB10 PO (14:58)
[2016-06-10] MEDS ORDERED: VOLTAREN TOP (14:58)
[2016-06-10] MEDS ORDERED: LORA-741 PO (14:58)
[2016-06-10] MEDS ORDERED: CHOL2000 PO (14:58)
[2016-06-10] MEDS ORDERED: PRED20TA PO (14:58)
[2016-06-10] MEDS ORDERED: MELO7.5T5 PO (14:58)
[2016-06-10] MEDS ORDERED: HYDR200T5 PO (14:58)
[2016-06-10] MEDS ORDERED: PREG1CAP28 PO (14:58)
[2016-06-23] MEDS ORDERED: BACL10TA PO (08:16)
== END 2016-04-25 11:58 | disposition home or self-care (01) ==
LOC: C.4E 19:59
PROVIDERS: ADMIT Hospitalist; ATTEND Family Medicine
DX: K81.2 Acute cholecystitis with chronic cholecystitis (principal); M32.9 Systemic lupus erythematosus, unspecified; F32.9 Major depressive disorder, single episode, unspecified; Z82.49 Family history of ischemic heart disease and other diseases of the circulatory system; Z83.49 Family history of other endocrine, nutritional and metabolic diseases; K66.0 Peritoneal adhesions (postprocedural) (postinfection)

== ENCOUNTER → 2016-05-02 | Outpatient (CLI) | payer OTHER ==
[~2016-05-02] MED LIST changes: +BACL10TA PO; +CHOL2000 PO; +CHOL4POW4 PO; +CIPR-255 PO; +ESCI1TAB10 PO; +HYDR-5688 PO; +HYDR200T5 PO; +LEFL20TA PO; -LISD30CA4 PO; +LORA-741 PO; +MELO7.5T5 PO; +METO-157 PO; +ONDA4TAB10 SL; +PRD/1 PO; +PRED20TA PO; +PREG1CAP28 PO; +PREG1CAP70 PO; +PRLSR20 PO; +PROM25TA9 PO; +SUCR5SUS PO; +VOLTAREN TOP
[2016-05-02 15:05] LABS: HEMATOCRIT 36.8 % (37-47); MEAN CELL VOLUME 89.1 fL (80-100); MEAN CORPUSCULAR HEMOGLOBIN 28.8 pg (25-34); MEAN CORPUSCULAR HGB CONC 32.3 g/dl (32-36); MEAN PLATELET VOLUME 10.1 fL (7.4-10.4); PLATELET COUNT 279 K/uL (130-400); RED BLOOD COUNT 4.13 M/uL (4.2-5.4)
[2016-05-02 15:24] LABS: ALT/SGPT 78 U/L (12-78); AST/SGOT 17 U/L (15-37); BLOOD UREA NITROGEN 10 mg/dl (7-18); BUN/CREATININE RATIO 12.8 (10-20); CALCIUM 8.2 mg/dl (8.5-10.1); CARBON DIOXIDE 27 mmol/L (21-32); CHLORIDE 110 mmol/L (98-107); GLUCOSE 119 mg/dl (70-99); POTASSIUM 3.3 mmol/L (3.5-5.1); SODIUM 144 mmol/L (136-145)
[2016-05-02 15:27] LABS: ALB/GLOB RATIO 1.1 (0.9-2); ALKALINE PHOSPHATASE 80 U/L (45-117)
== END | disposition home or self-care (01) ==
LOC: C.LABBC 14:18
PROVIDERS: ATTEND Family Medicine
DX: R11.0 Nausea (principal); R63.4 Abnormal weight loss

== ENCOUNTER → 2016-05-05 | Day surgery (SDC) | payer OTHER ==
[~2016-05-05] MED LIST changes: +LIDOCAINE HCL 2% 2 ML VIAL (20MG/ML) ONE; +MIDAZOLAM HCL 1 MG/ML 2ML VIAL ONE; +PROPOFOL IV EMULSION 10 MG/ML 20 ML VIAL IV ONE
--- NOTE | 2016-05-05 16:21 | Endo History and Physical ---
History & Physical Date of Service: May 05, 2016. Chief Complaint: epigastric ab abd discomfort Referring Physician: Dr Jones History of Present Illness 41 yo CF who presents for EGD secondary to epigastric abdominal pain and nausea. Past Surgical History Hx Cardiac Surgery: No Hx Internal Defibrillator: No Hx Pacemaker: No Hx Abdominal Surgery: Yes (gallbladder, appendectomy) Hx of Implantable Prosthesis: No Hx Post-Op Nausea and Vomiting: Yes Hx Cancer Surgery: No Hx Thoracic Surgery: No Hx Orthopedic: No Hx Urinary Tract Surgery: No Family History Polyp Social History Smoking Status: Never Smoker Hx Substance Use: No Hx Alcohol Use: No (occasional) Allergies Coded Allergies: No Known Allergies (Unverified , 03/11/13) Current Medications Reported Home Medications Medications Dose Route/Sig Max Daily Dose Days Date Category Zofran Odt (Ondansetron HCl) 4 Mg Tab 4 Mg SL Q6H 04/25/16 Rx Phenergan (Promethazine HCl) 25 Mg Tab 25 Mg PO Q6H PRN 04/25/16 Rx [Maxalt] PRN 03/11/13 Reported Wellbutrin Sr (Bupropion HCl) 200 Mg Ertab 200 Mg PO DAILY 03/11/13 Reported Vital Signs Date Time Temp Pulse Resp B/P Pulse Ox O2 Delivery O2 Flow Rate FiO2 05/05/16 15:46 36.8 53 20 121/60 99 Room Air Physical Exam General Appearance: WD/WN, no apparent distress Respiratory/Chest: Auscultation: breath sounds normal Cardiovascular: Heart Auscultation: RRR Abdomen: Bowel Sounds: normal Inspection & Palpation: soft, non-distended, no tenderness, guarding & rebound Assessment and Plan Assessment: 41 yo CF who presents for EGD secondary to epigastric abdominal pain and nausea. Plan: Proceed with EGD.
--- NOTE | 2016-05-05 16:43 | Discharge Instructions ---
Endoscopy Patient Instructions Date / Procedure(s) Performed May 05, 2016. EGD Allergy Information Coded Allergies: No Known Allergies (Unverified , 03/11/13) Discharge Date / Findings May 05, 2016. Gastritis s/p biopsies Hiatal hernia Duodenal nodule s/p biopsies Duodenal biopsies Medication Instructions OK to resume all medications today as prescribed Reported Home Medications Medications Dose Route/Sig Max Daily Dose Days Date Category Zofran Odt (Ondansetron HCl) 4 Mg Tab 4 Mg SL Q6H 04/25/16 Rx Phenergan (Promethazine HCl) 25 Mg Tab 25 Mg PO Q6H PRN 04/25/16 Rx [Maxalt] PRN 03/11/13 Reported Wellbutrin Sr (Bupropion HCl) 200 Mg Ertab 200 Mg PO DAILY 03/11/13 Reported Provider Instructions Activity Restrictions - No exercising or heavy lifting for 24 hours. - Do not drink alcohol the day of the procedure. - Do not drive a car or operate machinery until the day after the procedure. - Do not make any important decisions or sign important papers in 24 hours after the procedure. Following Day: - Return to full activity which may include returning to work/school. Diet Start your diet with liquids and light foods (jello, soup, juice, toast). Then eat your usual diet if not nauseated. Treatment For Common After Affects For mild abdominal pain, bloating, or excessive gas: - Rest - Eat lightly - Lie on right side Follow-Up Information Follow-up with Dr Jones as scheduled Anesthesia Information What You Should Know You have had a procedure that required some medicine to reduce anxiety and discomfort. This treatment is called moderate sedation. After receiving the treatment, you may be sleepy, but you will be able to breathe on your own. The effects of the treatment may last for several hours. Follow these instructions along with Activity/Diet recommendations noted above: * Do NOT do anything where dizziness or clumsiness would be dangerous. * Rest quietly at home today, then you can be up and about tomorrow. * Have a responsible person stay with you the rest of today. * You may have had an I.V. today. If so, you may take the dressing off later today. Recommendations Call your doctor if: * Trouble breathing * Continuous vomiting for more than 24 hours * Temperature above 101 degrees * Severe abdominal pain or bloating * Pain not relieved by pain medicine ordered * There is increased drainage or redness from any incision * A large amount of rectal bleeding greater than 2-3 tablespoons. (If you had a polyp/s removed or have hemorrhoids, a small amount of blood - from the rectum is to be expected.) * You have any unanswered questions or concerns. IN THE EVENT OF A SERIOUS EMERGENCY, GO TO THE NEAREST EMERGENCY ROOM Your discharge instructions were prepared by provider Levy Hemphill. Patient Instructions Signature Page Kamala Rhodes Patient (or Guardian) Signature/Date: I have read and understand the instructions given to me by my caregivers. Caregiver/RN/Doctor Signature/Date: The above-named patient and/or guardian has received patient instructions on this date. + Original Patient Signature Page (only) stays with chart. Please make copy for patient.
--- NOTE | 2016-05-05 16:58 | Anesthesiology Progress Note ---
Anesthesia Post Op Note Date & Time May 05, 2016 at 16:59 Vital Signs Pain Intensity: 5 Vital Signs Past 12 Hours Date Time Temp Pulse Resp B/P Pulse Ox O2 Delivery O2 Flow Rate FiO2 05/05/16 16:45 60 20 107/59 98 Room Air 05/05/16 15:46 36.8 53 20 121/60 99 Room Air Notes Mental Status: alert / awake / arousable, participated in evaluation Pt Amnestic to Procedure: Yes Nausea / Vomiting: adequately controlled Pain: adequately controlled Airway Patency, RR, SpO2: stable & adequate BP & HR: stable & adequate Hydration State: stable & adequate Anesthetic Complications: no major complications apparent
--- NOTE | 2016-05-05 17:02 | GI REPORT ---
Procedure Date: 05/05/2016 4:18 PM Procedure: Upper GI endoscopy Indications: Epigastric abdominal pain, Abdominal pain in the right upper quadrant, Nausea Medicines: Monitored Anesthesia Care Complications: No immediate complications. Estimated Blood Loss: Estimated blood loss: none. Procedure: Pre-Anesthesia Assessment: - Prior to the procedure, a History and Physical was performed, and patient medications and allergies were reviewed. The patient's tolerance of previous anesthesia was also reviewed. The risks and benefits of the procedure and the sedation options and risks were discussed with the patient. All questions were answered, and informed consent was obtained. Prior Anticoagulants: The patient has taken no previous anticoagulant or antiplatelet agents. ASA Grade Assessment: II - A patient with mild systemic disease. After reviewing the risks and benefits, the patient was deemed in satisfactory condition to undergo the procedure. After obtaining informed consent, the endoscope was passed under direct vision. Throughout the procedure, the patient's blood pressure, pulse, and oxygen saturations were monitored continuously. The scope was introduced through the mouth, and advanced to the third part of duodenum. The upper GI endoscopy was accomplished without difficulty. The patient tolerated the procedure well. Findings: The examined esophagus was normal. A medium-sized hiatus hernia was present. Localized mild inflammation characterized by erythema was found in the gastric antrum. Biopsies were taken with a cold forceps for histology. A few 5 mm submucosal nodules with white spots with a localized distribution were found at 2nd part of the duodenum. Biopsies were taken with a cold forceps for histology. Biopsies for histology were taken with a cold forceps in the 2nd part of the duodenum for evaluation of celiac disease. Impression: - Normal esophagus. - Medium-sized hiatus hernia. - Gastritis. Biopsied. - Submucosal nodule found in the duodenum. Biopsied. - Biopsies were taken with a cold forceps for evaluation of celiac disease. Recommendation: - Resume previous diet. - Continue present medications. - Await pathology results. - Return to GI office as previously scheduled. Levy Hemphill, DO 05/05/2016 5:02:49 PM This report has been signed electronically. Note Initiated On: 05/05/2016 4:18 PM I attest to the content of the Intraoperative Record and orders documented therein, exceptions below
[2016-05-05 17:15] VITALS: BP 122/74; PULSE 55; O2SAT 98
== END | disposition home or self-care (01) ==
LOC: C.GI 15:00
PROVIDERS: ATTEND Internal Medicine
DX: K29.70 Gastritis, unspecified, without bleeding (principal); K44.9 Diaphragmatic hernia without obstruction or gangrene; Z90.49 Acquired absence of other specified parts of digestive tract; Z98.890 Other specified postprocedural states

== ENCOUNTER → 2016-05-13 | Outpatient (CLI) | payer OTHER ==
[~2016-05-13] MED LIST changes: -BCPILLS PO; -CIPR-255 PO; -HYDR-5688 PO; -LIDOCAINE HCL 2% 2 ML VIAL (20MG/ML) ONE; -MIDAZOLAM HCL 1 MG/ML 2ML VIAL ONE; -PROPOFOL IV EMULSION 10 MG/ML 20 ML VIAL IV ONE
--- NOTE | 2016-05-13 09:51 | DIAGNOSTIC IMAGING REPORT ---
ULTRASOUND ABDOMEN COMPLETE CLINICAL HISTORY: Generalized abdominal pain. COMPARISON STUDY: Abdominal CT dated 02/10/2014. TECHNIQUE: Real-time, grayscale, and color flow sonography of the abdomen was performed. Images are reviewed in the transverse and longitudinal planes. FINDINGS: Liver: The liver is normal in size and echotexture. There is no intrahepatic biliary ductal dilatation. A 7 mm hepatic cyst is incidentally noted. The main portal vein is patent. Gallbladder: The gallbladder is surgically absent. The common bile duct measures up to 0.4 cm in diameter. Pancreas: Visualized portions of the pancreatic head and body are normal in appearance. Spleen: The spleen is normal in size and echotexture, measuring 10.8 cm in length. Kidneys: The kidneys are normal in size and echotexture. There is no hydronephrosis. The right kidney measures 12.2 cm in length and the left kidney measures 12.4 cm in length. No shadowing calculi are identified. Abdominal vasculature: Visualized portions of the abdominal aorta and IVC are normal in appearance. Ascites: None. IMPRESSION: Unremarkable sonographic evaluation of the abdomen noting status post cholecystectomy. Electronically signed by: Tariq Miller M.D. 05/13/2016 9:50 AM Dictated Date/Time: 05/13/2016 9:48 AM
== END | disposition home or self-care (01) ==
LOC: C.ULTRBC 09:10
PROVIDERS: ATTEND Family Medicine
DX: R11.0 Nausea (principal)

== ENCOUNTER 2016-05-14 21:22 | Inpatient (IN) | payer OTHER ==
[~2016-05-14] VITALS: Ht 165.1 cm; Wt 83.0 kg
[~2016-05-14 21:22] MED LIST changes: -BACL10TA PO; -CHOL2000 PO; -CHOL4POW4 PO; -ESCI1TAB10 PO; -HYDR200T5 PO; -LEFL20TA PO; -LORA-741 PO; -MELO7.5T5 PO; -METO-157 PO; -PRD/1 PO; -PRED20TA PO; -PREG1CAP28 PO; -PREG1CAP70 PO; -PRLSR20 PO; -SUCR5SUS PO; -VOLTAREN TOP
[2016-05-14] MEDS ORDERED: ONDANSETRON INJ 2 MG/ML 2 ML VIAL IV STA (21:46)
[2016-05-14] MEDS ORDERED: SODIUM CHLORIDE 0.9% 1000ML 1,000 ML IV STA (21:46)
[2016-05-14] MEDS ORDERED: HYDROmorphone INJ 0.5 MG/0.5 ML SYR IV STA (21:46)
[2016-05-14] MEDS ORDERED: SUCR5SUS PO (21:59)
[2016-05-14] MEDS ORDERED: ESCI1TAB10 PO (21:59)
[2016-05-14] MEDS ORDERED: PRD/1 PO (21:59)
[2016-05-14] MEDS ORDERED: METO-157 PO (21:59)
[2016-05-14] MEDS ORDERED: HYDR200T5 PO (21:59)
[2016-05-14] MEDS ORDERED: PRLSR20 PO (21:59)
[2016-05-14] MEDS ORDERED: PREG1CAP70 PO (21:59)
[2016-05-14] MEDS ORDERED: CHOL4POW4 PO (21:59)
[2016-05-14] MEDS ORDERED: CHOL2000 PO (21:59)
[2016-05-14] MEDS ORDERED: LEFL20TA PO (21:59)
[2016-05-14] MEDS ORDERED: OPTIRAY 320 IV PRN (22:00)
[2016-05-14 22:06] LABS: BASO % 0.5 %; BASO ABS # 0.04 K/uL (0-0.2); COMPLETE YES; EOS % 2.4 %; HEMATOCRIT 34.7 % (37-47); IG% 0.1 %; LYMPH % 43.1 %; LYMPH ABS # 3.36 K/uL (1.2-3.4); MEAN CELL VOLUME 86.3 fL (80-100); MEAN CORPUSCULAR HEMOGLOBIN 28.6 pg (25-34); MEAN CORPUSCULAR HGB CONC 33.1 g/dl (32-36); MEAN PLATELET VOLUME 9.9 fL (7.4-10.4); MONO % 8.6 %; NEUT % 45.3 %; PLATELET COUNT 267 K/uL (130-400); RED BLOOD COUNT 4.02 M/uL (4.2-5.4); WHITE BLOOD COUNT 7.79 K/uL (4.8-10.8)
[2016-05-14 22:23] LABS: ALT/SGPT 19 U/L (12-78); BLOOD UREA NITROGEN 9 mg/dl (7-18); C-REACTIVE PROTEIN < 0.29 mg/dl (0-0.29); CARBON DIOXIDE 24 mmol/L (21-32); CHLORIDE 112 mmol/L (98-107); CREATININE 0.67 mg/dl (0.60-1.20); GLUCOSE 76 mg/dl (70-99); POTASSIUM 3.1 mmol/L (3.5-5.1); SODIUM 143 mmol/L (136-145)
[2016-05-14 22:28] LABS: ALKALINE PHOSPHATASE 63 U/L (45-117); AST/SGOT 8 U/L (15-37); PREG INTERNAL NEGATIVE QC NEG CLEAR BACKGROUND; PREG INTERNAL POSITIVE QC POS CONTROL LINE
[2016-05-14 22:31] LABS: URINE APPEARANCE CLEAR (CLEAR); URINE BILIRUBIN NEG (NEG); URINE COLOR YELLOW; URINE EPITHELIAL CELL AUTO 20-30 /lpf (0-5); URINE NITRITE NEG (NEG); URINE PH 5.5 (4.5-7.5); URINE SPECIFIC GRAVITY 1.018 (1.000-1.030); UROBILINOGEN NEG (NEG); ZZUR CULT IF INDIC CLEAN CATCH NO
[2016-05-14 22:33] LABS: MANUAL MICROSCOPIC REQUIRED? NO; REVIEW REQ? NO
[2016-05-14] MEDS ORDERED: DiphenhydrAMINE HCL 50 MG/ML VIAL IV STA (23:31)
[2016-05-15] MEDS ORDERED: HYDROmorphone INJ 1 MG/ML SYR IV STA (00:12)
[2016-05-15] MEDS ORDERED: PROCHLORPERAZINE 5 MG/ML 2 ML VIAL ONE (00:23)
[2016-05-15] MEDS ORDERED: NSS+KCL 20 MEQ 1000ML ONE (00:36)
--- NOTE | 2016-05-15 00:40 | EMERGENCY ROOM VISIT NOTE ---
History Report prepared by Smiley: Mariza Watkins Under the Supervision of: Dr. Mookie Sun M.D. First contact with patient: 21:36 Chief Complaint: GI ASSESSMENT Stated Complaint: EPIGASTRIC PAIN, NAUSEA, CHILLS History of Present Illness The patient is a 41 year old female who presents to the Emergency Room with complaints of persistent abdominal pain which started yesterday. She first started experiencing abdominal pain 1 month ago. At first she thought she just had the stomach flu. When her symptoms did not resolve in a week, she went to see a doctor. She had cholecystitis and she had a cholecystectomy 3 weeks ago. After the surgery, she had started to feel better, but the pain has started again 2 weeks ago. 10 days ago she was found to have gastritis. She began to have pain under her right shoulder blade yesterday. She has SOB which she attributes to her nausea. She denies any dysuria, diarrhea, syncope, or swelling of the legs. She is scheduled for a CT scan tomorrow. She has no history of blood clots and denies any recent travel. She has lupus. She has been drinking a lot of fluids. Source of History: patient Onset: yesterday Position: abdomen Timing: other (persistent) Associated Symptoms: + SOB, + nausea, No LOC, No diarrhea, No urinary symptoms Note: Pt denies swelling in the legs. Review of Systems See HPI for pertinent positives & negatives. A total of 10 systems reviewed and were otherwise negative. Past Medical & Surgical Medical Problems: (1) epigastric pain , nausea (2) Lupus Surgical Problems: (1) S/P appendectomy (2) S/P cholecystectomy Family History Pt reports no pertinent family history. Social History Smoking Status: Former Smoker Marital Status: Housing Status: lives with family Occupation Status: unemployed Current/Historical Medications Scheduled Cholecalciferol (Vitamin D3), 2,000 INTER.UNIT PO HS Cholestyramine (Cholestyramine), 8 MG PO TID Escitalopram Oxalate (Lexapro), 20 MG PO HS Hydroxychloroquine Sulfate (Plaquenil), 400 MG PO HS Leflunomide (Arava), 20 MG PO HS Omeprazole (Prilosec), 20 MG PO BID Prednisone (Prednisone), 2 MG PO HS Pregabalin (Lyrica), 150 MG PO HS Sucralfate (Carafate), 10 ML PO QID Scheduled PRN Metoclopramide (Reglan), 10 MG PO Q6H PRN for Nausea Allergies Coded Allergies: No Known Allergies (Unverified , 03/11/13) Physical Exam Vital Signs Date Time Temp Pulse Resp B/P Pulse Ox O2 Delivery O2 Flow Rate FiO2 05/14/16 23:06 53 18 111/71 100 Room Air 05/14/16 21:24 36.7 58 18 135/78 100 Room Air Physical Exam GENERAL: Patient is uncomfortable appearing and in moderate distress. HEENT: No acute trauma, normocephalic atraumatic, mucous membranes moist, no nasal congestion, no scleral icterus. NECK: No stridor, no adenopathy, no meningismus, trachea is midline. LUNGS: No dyspnea. Clear to auscultation and equal bilaterally. No wheeze, no rhonchi. HEART: Regular rate and rhythm. No murmurs, rubs, gallops appreciated. ABDOMEN: Soft, bowel sounds positive, no masses appreciated, no peritonitis. Mild epigastric tenderness to palpation. BACK: No midline tenderness, no CVA tenderness EXTREMITIES: Normal motion all extremities, no cyanosis, no edema. NEUROLOGIC: Alert and oriented, no acute motor or sensory deficits, no focal weakness, cranial nerves grossly intact. SKIN: No rash, no jaundice, no diaphoresis. Medical Decision & Procedures Laboratory Results 05/14/16 21:55 Red Blood Count 4.02, Mean Corpuscular Volume 86.3, Mean Corpuscular Hemoglobin 28.6, Mean Corpuscular Hemoglobin Concent 33.1, Mean Platelet Volume 9.9, Neutrophils (%) (Auto) 45.3, Lymphocytes (%) (Auto) 43.1, Monocytes (%) (Auto) 8.6, Eosinophils (%) (Auto) 2.4, Basophils (%) (Auto) 0.5, Neutrophils # (Auto) 3.52, Lymphocytes # (Auto) 3.36, Monocytes # (Auto) 0.67, Eosinophils # (Auto) 0.19, Basophils # (Auto) 0.04 05/14/16 21:55 Test 05/14/16 21:54 05/14/16 21:55 05/14/16 22:00 Urine Color YELLOW Urine Appearance CLEAR (CLEAR) Urine pH 5.5 (4.5-7.5) Urine Specific [place] 1.018 (1.000-1.030) Urine Protein NEG (NEG) Urine Glucose (UA) NEG (NEG) Urine Ketones NEG (NEG) Urine Occult Blood NEG (NEG) Urine Nitrite NEG (NEG) Urine Bilirubin NEG (NEG) Urine Urobilinogen NEG (NEG) Urine Leukocyte Esterase NEG (NEG) Urine WBC (Auto) 1-5 /hpf (0-5) Urine RBC (Auto) 0-4 /hpf (0-4) Urine Hyaline Casts (Auto) 1-5 /lpf (0-5) Urine Epithelial Cells (Auto) 20-30 /lpf (0-5) Urine Bacteria (Auto) NEG (NEG) Urine Test NEG (NEG) White Blood Count 7.79 K/uL (4.8-10.8) Red Blood Count 4.02 M/uL (4.2-5.4) Hemoglobin 11.5 g/dL (12.0-16.0) Hematocrit 34.7 % (37-47) Mean Corpuscular Volume 86.3 fL (80-100) Mean Corpuscular Hemoglobin 28.6 pg (25-34) Mean Corpuscular Hemoglobin Concent 33.1 g/dl (32-36) Platelet Count 267 K/uL (130-400) Mean Platelet Volume 9.9 fL (7.4-10.4) Neutrophils (%) (Auto) 45.3 % Lymphocytes (%) (Auto) 43.1 % Monocytes (%) (Auto) 8.6 % Eosinophils (%) (Auto) 2.4 % Basophils (%) (Auto) 0.5 % Neutrophils # (Auto) 3.52 K/uL (1.4-6.5) Lymphocytes # (Auto) 3.36 K/uL (1.2-3.4) Monocytes # (Auto) 0.67 K/uL (0.11-0.59) Eosinophils # (Auto) 0.19 K/uL (0-0.5) Basophils # (Auto) 0.04 K/uL (0-0.2) RDW Standard Deviation 44.6 fL (36.4-46.3) RDW Coefficient of Variation 14.1 % (11.5-14.5) Immature Granulocyte % (Auto) 0.1 % Immature Granulocyte # (Auto) 0.01 K/uL (0.00-0.02) Erythrocyte Sedimentation Rate 2 mm/hr (0-21) Anion Gap 7.0 mmol/L (3-11) Est Creatinine Clear Calc Drug Dose 118.4 ml/min Estimated GFR () 127.4 Estimated GFR (Non- 110.0 BUN/Creatinine Ratio 14.0 (10-20) Calcium Level 8.0 mg/dl (8.5-10.1) Total Bilirubin 0.3 mg/dl (0.2-1) Direct Bilirubin < 0.1 mg/dl (0-0.2) Aspartate Amino Transf (AST/SGOT) 8 U/L (15-37) Alanine Aminotransferase (ALT/SGPT) 19 U/L (12-78) Alkaline Phosphatase 63 U/L (45-117) Troponin I < 0.015 ng/ml (0-0.045) C-Reactive Protein < 0.29 mg/dl (0-0.29) Total Protein 6.2 gm/dl (6.4-8.2) Albumin 3.2 gm/dl (3.4-5.0) Amylase Level 36 U/L (25-115) Lipase 213 U/L (73-393) Human Chorionic Gonadotropin, Qual NEG (NEG) Bedside Lactic Acid Venous 1.16 mmol/L (0.90-1.70) Laboratory results as reviewed by me. Medications Administered Medications (Trade) Dose Ordered Sig/Lisa Route Start Time Stop Time Status Last Admin Dose Admin Sodium Chloride (Nss 1000ml) 1,000 ml @ 999 mls/hr Q1H1M STAT IV 05/14/16 21:46 05/14/16 22:46 DC 05/14/16 22:11 999 MLS/HR Hydromorphone HCl (Dilaudid Inj) 0.5 mg NOW STAT IV 05/14/16 21:46 05/14/16 21:48 DC 05/14/16 22:12 0.5 MG Ondansetron HCl (Zofran Inj) 4 mg NOW STAT IV 05/14/16 21:46 05/14/16 21:48 DC 05/14/16 22:12 4 MG Diphenhydramine HCl (Benadryl Inj) 50 mg NOW STAT IV 05/14/16 23:31 05/14/16 23:32 DC 05/14/16 23:54 50 MG Prochlorperazine Edisylate (Compazine Inj) 10 mg STK-MED ONCE .ROUTE 05/15/16 00:23 05/15/16 00:26 DC 05/15/16 00:33 5 MG ED Course 2136: The patient was evaluated in room A11. A complete history and physical exam was performed. 2145: Zofran Inj 4 mg IV, Dilaudid Inj 0.5 mg IV, NSS 1000 ml @ 999 mls/hr IV. 3: I reevaluated the patient. She is receiving her pain medications. 2330: I reevaluated the patient. She is still nauseous. Benadryl was given as antinausea medication. 2330: Benadryl Inj 50 mg IV. Medical Decision Differential: Cholecystitis, Gallbladder disfunction, Hepatic Disfunction, Gastritis/PUD, Pancreatitis, ACS, Aortic Pathology, amongst other pathologies entertained. 41 yr old female with ~ 1 month of waxing/waning epigastric abdominal pain and nausea. Already with GB out. Multiple labs unremarkable. Continued symptoms thus planned CT scan in 12 hours however pain worsening and came to ED. CT with IV/PO contrast reveals concern for transient SB intussusception. This is consistent with symptoms and I feel is likely culprit. Lactic acid normal and given symptoms I do not feel she is actively infarcting bowel. She will come in to medicine service and gen surg to consult. Dr Smith agrees with plan and will discuss with her surgeon Dr Andre. Dr Ochoa will bring in to hospital. Impression Primary Impression: Intussusception of small bowel Additional Impression: Intractable nausea and vomiting Scribe Attestation The scribe's documentation has been prepared under my direction and personally reviewed by me in its entirety. I confirm that the note above accurately reflects all work, treatment, procedures, and medical decision making performed by me. Departure Information Referrals Myra Jones D.O. (PCP) Patient Instructions My [facility] Problem Qualifiers Additional Impression: Intractable nausea and vomiting Vomiting type: unspecified Qualified Codes: R11.2 - Nausea with vomiting, unspecified
[2016-05-15] MEDS ORDERED: NURSING VERBAL MED ORDER ONE ×2 (00:45)
[2016-05-15] MEDS ORDERED: PROCHLORPERAZINE INJ 5 MG in SYRINGE 4 ML IV STA (00:49)
[2016-05-15] MEDS ORDERED: PIPERACILLIN/TAZOBACTAM 3.375 GM/100ML D5W IV STA (00:53)
[2016-05-15] MEDS: NSS + 20MEQ KCL 1000ML 1,000 ML IV SCH ×3 (01:00→17:09)
[2016-05-15] MEDS ORDERED: POLYETHYLENE (MIRALAX) 17 GM PACK PO PRN (01:00)
[2016-05-15] MEDS ORDERED: MAGNESIUM HYDROXIDE SUSP 30 ML UDC PO PRN (01:00)
[2016-05-15] MEDS ORDERED: DiphenhydrAMINE HCL 50 MG/ML VIAL IV PRN (01:00)
[2016-05-15] MEDS ORDERED: ONDANSETRON INJ 2 MG/ML 2 ML VIAL IV PRN ×2 (01:00→13:00)
[2016-05-15] MEDS ORDERED: ALUMINUM/MAGNESIUM/SIMETH (MAALOX MAX) 30 ML UDC PO PRN (01:00)
[2016-05-15 01:28] LABS: MAGNESIUM 2.3 mg/dl (1.8-2.4)
--- NOTE | 2016-05-15 01:34 | History and Physical ---
History & Physical Date & Time of Service: May 15, 2016 at 01:11 Chief Complaint: Epigastric Pain, Nausea, Chills Primary Care Physician: Myra Jones D.O. History of Present Illness Source: patient, spouse Mrs. Kamala Rhodes is a 41 year old female with lupus who presents with a month history of epigastric pain and severe nausea. Her symptoms began on 04/13 when one of her children had gastroenteritis, and she noticed she started to feel nauseated, but did not vomit. Her symptoms lasted for a few days, and she started to have RUQ, epigastric, and interscapular pain. This did not improve with Zantac, so started they went to see their PCP Dr. Jones who ordered labs which were normal. She had an ultrasound of the gallbladder on 04/17, which showed gallstones within the gallbladder lumen, normal caliber bile duct and was otherwise a negative study. She was still having severe right upper quadrant pain and also interscapular pain, so was admitted to the hospital on 04/22. She had a HIDA scan then and eventually had a laparoscopic cholecystectomy with Dr. Andre on 04/23/16. Her gallbladder pathology showed features of acute and chronic cholecystitis. She was discharged home two days post-operatively, and by then her right upper quadrant pain had improved but she still had epigastric pain and persistent nausea. She then had about a week and acid suppressive medications with Prilosec then that did not make a difference. She had repeat labs 05/02/16 which were normal. She eventually had an EGD 05/05/16 that showed a hiatal hernia and mild gastritis (Pathology results below). She continued to be on Carafate 4 times a day and Omeprazole BID but the pain persisted. On 05/12 she also stopped her leflunomide which she takes for lupus. She had a repeat US on 05/13 which was unremarkable. On 05/14 she stopped taking the Omeprazole and Carafate. This afternoon her nausea had worsened, and epigastric pain was persistent. She described having one episode of chills, but has not had any fevers. Her came home and saw her and she said she was not feeling well, looked pale , and was breathing more heavily than usual, so he brought her to the ED. She was due for a CT scan with contrast for tomorrow afternoon. This was completed in the emergency department and [facility] reading showed small bowel intussusception. The epigastric pain was constant and severe throughout the day and night, associated with nausea and lack of appetite, had no relieving factors, and would not change after passing stool. It was not related to food intake. She has had no changes in her stools. She has not vomited or had fevers at any point. She also did notice very loud, high pitched bowel sounds that could be audible to other people in the room occurring frequently over the last month. She has had about a 10 pound weight loss over the last month due to not being able to eat as well as usual. Over the last year she had about a 70 pound weight loss which was intentional and with diet and exercise. Currently, she reports feeling nauseated but drowsy, and the pain is well controlled after receiving Dilaudid. Past Medical/Surgical History Past medical history: Lupus Past surgical history: Cholecystectomy (recent), EGD, appendectomy Past OB history: Has had 2 sets of twins, during her she had hyperemesis gravidarum. EGD Pathology from biopsies 05/05/16: A. DUODENUM, BIOPSIES: BENIGN UNREMARKABLE DUODENAL MUCOSA. B. DUODENAL NODULE, BIOPSIES: DILATED LACTEALS. SEE COMMENT. C. STOMACH, ANTRUM, BIOPSIES: 1. MILD CHRONIC GASTRITIS. 2. NEGATIVE FOR ACUTE INFLAMMATION, INTESTINAL METAPLASIA, DYSPLASIA AND CARCINOMA. 3. H. PYLORI IMMUNOPEROXIDASE STAIN NEGATIVE. COMMENT: The duodenal nodule shows multiple dilated lymphatics (lacteals) within the submucosa. This seems to correspond well with Dr. Hanley description in his endoscopy report. Congenital lymphangiectasia can be associated with malabsorption, but dilated lacteals or lymphangiectasia can be seen secondary to many other conditions, but can also be an incidental finding. Please correlate clinically. The duodenal biopsies (part A) show normal villous architecture with no increase in intraepithelial lymphocytes, acute inflammation or granulomas. No parasites are noted. There is no evidence of a neoplasm. Family History Brother had a colonic malignancy at age of 40 for which she had a partial resection of the bowel. The patient herself had a normal screening colonoscopy. Mother and father both have hypertension Mother also has osteoarthritis and impaired glucose tolerance Social History Lives at home with and 4 children. Smoking Status: Former Smoker Alcohol Use: socially (2 drinks per week, but nothing in the last month.) Marital Status: Occupational Status: unemployed Allergies Coded Allergies: Promethazine (Verified Adverse Reaction, Intermediate, Restlessness, ) Home Medications Scheduled Cholecalciferol (Vitamin D3), 2,000 INTER.UNIT PO HS Cholestyramine (Cholestyramine), 8 MG PO TID Escitalopram Oxalate (Lexapro), 20 MG PO HS Hydroxychloroquine Sulfate (Plaquenil), 400 MG PO HS Leflunomide (Arava), 20 MG PO HS Omeprazole (Prilosec), 20 MG PO BID Prednisone (Prednisone), 2 MG PO HS Pregabalin (Lyrica), 150 MG PO HS Sucralfate (Carafate), 10 ML PO QID Scheduled PRN Metoclopramide (Reglan), 10 MG PO Q6H PRN for Nausea Review of Systems See HPI for pertinent positives & negatives. A total of 10 systems reviewed and were otherwise negative. Physical Exam Vital Signs Date Time Temp Pulse Resp B/P Pulse Ox O2 Delivery O2 Flow Rate FiO2 05/15/16 00:49 64 16 125/73 99 Room Air 05/14/16 23:06 53 18 111/71 100 Room Air 05/14/16 21:24 36.7 58 18 135/78 100 Room Air General Appearance: WD/WN, + moderate distress Head: normocephalic, atraumatic Eyes: normal inspection, PERRL ENT: hearing grossly normal Neck: supple, no JVD Respiratory/Chest: lungs clear, normal breath sounds, no respiratory distress Cardiovascular: regular rate, rhythm, no murmur, normal peripheral pulses Abdomen/GI: non tender, soft, + abnormal bowel sounds (hyperactive, high pitched) Back: no CVA tenderness, no muscle spasm Extremities/Musculoskelatal: no calf tenderness, no pedal edema Neurologic/Psych: alert, normal mood/affect, oriented x 3 Skin: no rash Diagnostics Laboratory Results Results Past 24 Hours Test 05/14/16 21:54 05/14/16 21:55 05/14/16 22:00 Range/Units Urine Color YELLOW Urine Appearance CLEAR CLEAR Urine pH 5.5 4.5-7.5 Urine Specific Casa 1.018 1.000-1.030 Urine Protein NEG NEG Urine Glucose (UA) NEG NEG Urine Ketones NEG NEG Urine Occult Blood NEG NEG Urine Nitrite NEG NEG Urine Bilirubin NEG NEG Urine Urobilinogen NEG NEG Urine Leukocyte Esterase NEG NEG Urine WBC (Auto) 1-5 0-5 /hpf Urine RBC (Auto) 0-4 0-4 /hpf Urine Hyaline Casts (Auto) 1-5 0-5 /lpf Urine Epithelial Cells (Auto) 20-30 0-5 /lpf Urine Bacteria (Auto) NEG NEG Urine Test NEG NEG White Blood Count 7.79 4.8-10.8 K/uL Red Blood Count 4.02 4.2-5.4 M/uL Hemoglobin 11.5 12.0-16.0 g/dL Hematocrit 34.7 37-47 % Mean Corpuscular Volume 86.3 80-100 fL Mean Corpuscular Hemoglobin 28.6 25-34 pg Mean Corpuscular Hemoglobin Concent 33.1 32-36 g/dl Platelet Count 267 130-400 K/uL Mean Platelet Volume 9.9 7.4-10.4 fL Neutrophils (%) (Auto) 45.3 % Lymphocytes (%) (Auto) 43.1 % Monocytes (%) (Auto) 8.6 % Eosinophils (%) (Auto) 2.4 % Basophils (%) (Auto) 0.5 % Neutrophils # (Auto) 3.52 1.4-6.5 K/uL Lymphocytes # (Auto) 3.36 1.2-3.4 K/uL Monocytes # (Auto) 0.67 0.11-0.59 K/uL Eosinophils # (Auto) 0.19 0-0.5 K/uL Basophils # (Auto) 0.04 0-0.2 K/uL RDW Standard Deviation 44.6 36.4-46.3 fL RDW Coefficient of Variation 14.1 11.5-14.5 % Immature Granulocyte % (Auto) 0.1 % Immature Granulocyte # (Auto) 0.01 0.00-0.02 K/uL Erythrocyte Sedimentation Rate 2 0-21 mm/hr Sodium Level 143 136-145 mmol/L Potassium Level 3.1 3.5-5.1 mmol/L Chloride Level 112 98-107 mmol/L Carbon Dioxide Level 24 21-32 mmol/L Anion Gap 7.0 3-11 mmol/L Blood Urea Nitrogen 9 7-18 mg/dl Creatinine 0.67 0.60-1.20 mg/dl Est Creatinine Clear Calc Drug Dose 118.4 ml/min Estimated GFR () 127.4 Estimated GFR (Non- 110.0 BUN/Creatinine Ratio 14.0 10-20 Random Glucose 76 70-99 mg/dl Calcium Level 8.0 8.5-10.1 mg/dl Total Bilirubin 0.3 0.2-1 mg/dl Direct Bilirubin < 0.1 0-0.2 mg/dl Aspartate Amino Transf (AST/SGOT) 8 15-37 U/L Alanine Aminotransferase (ALT/SGPT) 19 12-78 U/L Alkaline Phosphatase 63 45-117 U/L Troponin I < 0.015 0-0.045 ng/ml C-Reactive Protein < 0.29 0-0.29 mg/dl Total Protein 6.2 6.4-8.2 gm/dl Albumin 3.2 3.4-5.0 gm/dl Amylase Level 36 25-115 U/L Lipase 213 73-393 U/L Human Chorionic Gonadotropin, Qual NEG NEG Bedside Lactic Acid Venous 1.16 0.90-1.70 mmol/L Diagnostic Radiology CT Abdomen/Pelvis with PO contrast: Per [facility] reading: Small bowel intussusception, no bowel obstruction Impression Assessment and Plan 41-year-old female with lupus, on chronic prednisone, who presents with 1 month history of severe epigastric pain and nausea, found to have small bowel intussusception on CT scan. Abdominal pain, likely due to small bowel intussusception - Morphine 1-2mg IV q4h, please call if this is not enough and we will adjust - Zofran, Benadryl, and Compazine all for nausea. - No phenergan due to side effects in pt - Consult General Surgery and GI - Discussed placement of NG tube for decompression, pt elected to hold off for now, but will reassess need for this if deteriorates Dehydration - NS with 20meQ KCL at 100mL/hour - Monitor urine output Chronic prednisone use - Stress dose steroids with Solumedrol 10mg IV daily Lupus - Hold leflunomide and Plaquenil Level of Care Med/Surg Resuscitation Status FULL RESUSCITATION VTE Prophylaxis VTE Risk Assessment Done? Y/N: Yes Risk Level: Moderate Given or contraindicated: SCD's Resident Tracking Resident Involvement: Resident Care Provided Care Provided: Adult Hospital Medicine Assessment and Plan Attending Addendum: I have physically seen and examined this patient, have directed their medical care, have supervised the medical residents activities, and agree with the H&P as noted above, with the following changes: The patient is awake, well-developed and adequately nourished, alert and oriented 3, normocephalic and atraumatic, lying in bed and in mild acute distress secondary to nausea. HEENT--PERRL, EOMI, mucous membranes and oropharynx dry. Neck--supple, no JVD or bruits, thyroid normal, trachea midline, no adenopathy. Heart--normal S1 and S2, no extra beats, no murmurs, rubs or gallops. Lungs--clear bilaterally with good air movement, no respiratory distress, no accessory muscle use. Abdomen--periodic high-pitched bowel sounds, nontender and nondistended, no hernias or masses, no organomegaly. Extremities--no cyanosis, clubbing or edema. There are good distal pulses b/l. Dermatologic--normal skin turgor, normal color, warm and dry, no abnormal lymph nodes, no rash. Neurologic--cranial nerves II through XII grossly intact, motor and sensory examination normal. Rheumatologic--normal range of motion, nontender, muscles and joints. Psychiatric--normal affect. Assessment and Plan: Intractable abdominal pain and nausea/ small bowel intussusception/ status post cholecystectomy 04/23/2016/ status post EGD 05/05/2016 hiatal hernia and mild gastritis--patient will be admitted to medical floor with nothing by mouth status. We did discuss with her the option of an NGT to LIS, but she preferred to wait. She'll be placed on normal saline with potassium chloride 20 mEq 125 ML's per hour, Zofran 4 mg IV every 6 hours when necessary, Compazine 10 mg IV every 6 hours when necessary, Protonix 40 mg IV twice a day, and Zosyn 3.375 mg IV every 6 hours. Additional studies to be performed in the a.m. would be a small bowel follow-through study. Consult has been placed to Dr. Brayan Andre from surgery who will see the patient in the a.m.. We'll also consult Dr. Levy Hemphill. We will hold Carafate 10 mils by mouth 4 times a day, omeprazole 20 mg by mouth twice a day, cholestyramine 8 mg by mouth 3 times a day, and cholecalciferol 2000units by mouth at bedtime. Lupus/immunosuppression--hold Plaquenil 40 mg by mouth daily at bedtime, leflunomide 20 mg by mouth at bedtime, prednisone 2 mg by mouth at bedtime, Lyrica 50 mg by mouth at bedtime. Place on Solu-Medrol 10 mg IV every morning. We will hold Lexapro 20 mg by mouth at bedtime, and have available lorazepam 0.5 mg IV every 6 hours when necessary.
[2016-05-15 01:35] VITALS: BP 125/84; PULSE 56; TEMP 36.6; O2SAT 100; Ht 165.1 cm; Wt 83.0 kg
[2016-05-15] MEDS ORDERED: PIPERACILL/TAZOBAC CONSULT ACTIVE PRN (02:00)
[2016-05-15] MEDS ORDERED: MoRPHine SULFATE 4 MG/ML 1 ML CARP\\VIAL IV PRN (02:15)
[2016-05-15] MEDS: MoRPHine SULFATE 2 MG/ML CARP IV PRN ×5 (02:18→17:10)
[2016-05-15] MEDS: PANTOprazole INJ 40 MG in SYRINGE 0 ML IV SCH ×2 (03:10→08:05)
[2016-05-15] MEDS: PIPERACILL/TAZOBAC IV 3.375 GM in DEXTROSE 5% 100ML 100 ML IV SCH ×2 (05:19→13:56)
[2016-05-15 07:28] VITALS: TEMP 36.5
[2016-05-15 07:52] VITALS: BP 134/83; PULSE 57; TEMP 36.6; O2SAT 98
[2016-05-15] MEDS ORDERED: METHYLPREDNISOLONE IV SCH (08:00)
[2016-05-15] MEDS ORDERED: METHYLPREDNISOLONE IV 10 MG in SYRINGE 0 ML IV SCH (08:00)
--- NOTE | 2016-05-15 08:14 | DIAGNOSTIC IMAGING REPORT ---
ABDOMEN AND PELVIS CT WITH IV AND ORAL CONTRAST CT DOSE: 467.51 mGy.cm HISTORY: Epigastric abdominal pain TECHNIQUE: Multiaxial CT images of the abdomen and pelvis were performed following the use of intravenous and oral contrast. COMPARISON STUDY: Abdomen and pelvis CT 02/10/2014. FINDINGS: The lung bases are clear. No pneumoperitoneum. No pneumatosis. Stable 1 cm hypodense lesion within the right hepatic lobe. This may represent a small cyst. The spleen, adrenal glands, pancreas, and kidneys are unremarkable. No retroperitoneal lymphadenopathy. The bladder, uterus, bilateral adnexa are unremarkable. Trace pelvic free fluid is likely physiologic. Colonic diverticulosis. Moderate stool within the colon. No bowel wall thickening or obstruction. The appendix is not identified and is likely surgically absent. Patient is status post recent cholecystectomy. Small amount of fluid/edema at the gallbladder fossa. No loculated fluid collections to suggest an abscess. Focal transition small bowel intussusception within the midabdomen. This is of doubtful clinical significance given the patient's age. Contrast easily flows through this area. There is no dilated loops of bowel to suggest an obstruction. Mild central intrahepatic bile duct dilatation. IMPRESSION: 1. Status post recent cholecystectomy. Small amount of fluid/edema at the gallbladder fossa. No loculated fluid collections to suggest an abscess. 2. Mild central intrahepatic bile duct dilatation which may be due to the recent cholecystectomy state. 3. Trace pelvic free fluid which is likely physiologic. Electronically signed by: Arley Tovar M.D. 05/15/2016 8:13 AM Dictated Date/Time: 05/15/2016 8:08 AM
--- NOTE | 2016-05-15 08:46 | SURGICAL CONSULTATION ---
DATE OF ADMISSION: 05/15/2016 REASON FOR CONSULTATION: Intussusception. HISTORY OF PRESENT ILLNESS: The patient is a 41-year-old female who was admitted to the hospital with mid upper abdominal pain and nausea, which has been recurrent and persistent over several weeks and apparently has been worsening. She was found on CAT scan to have evidence of postcholecystectomy changes in the subhepatic space with no significant fluid collection and also some proximal bowel edema with proximal intussusception with contrast flow through the area and no evidence of obstruction or inflammation. She has no other significant findings on her CAT scan. She did undergo ultrasound on 05/13/2016 which was negative. She underwent upper endoscopy on 05/05/2016, which showed some mild gastritis. On 04/23/2016, she underwent laparoscopic cholecystectomy with intraoperative cholangiogram which showed evidence of chronic cholecystitis, adhesions and a stone in the neck of the gallbladder at that time. Her cholangiogram was essentially normal. Prior to the cholecystectomy the patient had had 2-3 weeks of abdominal pain and nausea. The patient is afebrile and her heart rate is normal. Her white count is 7.7. Her liver functions are essentially normal. Her family and social history are noncontributory. ALLERGIES: SHE HAS ALLERGY TO PROMETHAZINE. MEDICATIONS: She does take medications including cholestyramine, Prilosec and prednisone. REVIEW OF SYSTEMS: Please see HPI for positive review of systems. A total of 10 other systems reviewed and otherwise negative. PHYSICAL EXAMINATION: GENERAL: She is a mildly ill-appearing female in no distress. HEENT: Her sclerae are nonicteric. Her skin shows no evidence of rashes. Her head is atraumatic. NECK: Supple. LUNGS: Clear. HEART: Regular rate and rhythm. ABDOMEN: Flat and soft. She does have some mild discomfort in the upper abdomen to deep palpation, I do not feel any significant masses. EXTREMITIES: Without edema. I did review her CAT scan. ASSESSMENT AND PLAN: This 41-year-old female with a history of lupus, admitted with persistent epigastric abdominal pain and nausea, and no vomiting. We did find the intussusception on CT scan which may be an incidental finding showing no obstruction; however, this is the area of her pain. It may be that the patient will need some type of small bowel enteroscopy. I will review her CAT scan with the radiologist and also discuss her case with our manager assessment. It may come that she needs an evaluation at a tertiary care center such as [place] to have more aggressive workup. I do not think the patient requires any urgent surgical intervention at the present time and will continue with supportive care including IV fluids.
[2016-05-15] MEDS ORDERED: LORAZEPAM 0.5 MG TAB PO PRN (10:00)
[2016-05-15] MEDS ORDERED: LORAZEPAM 2 MG/ML 1 ML VIAL IV PRN ×2 (10:00)
[2016-05-15] MEDS ORDERED: LORAZEPAM 2 MG/ML 1 ML VIAL ONE (10:00)
[2016-05-15] MEDS: PROCHLORPERAZINE INJ 5 MG in SYRINGE 4 ML IV PRN ×2 (10:14→17:20)
[2016-05-15] MEDS ORDERED: ONDANSETRON INJ 8 MG in DEXTROSE 5% 50ML 50 ML IV PRN (10:15)
[2016-05-15 11:16] VITALS: BP 112/71; PULSE 65; TEMP 36.9; O2SAT 95
--- NOTE | 2016-05-15 12:11 | DIAGNOSTIC IMAGING REPORT ---
Brain MRI WITHOUT CONTRAST HISTORY: Headaches. Mental status change. persistent unexplained nausea after fall TECHNIQUE: Multiplanar multisequence MRI of the brain was performed without the use of contrast. COMPARISON STUDY: 07/04/2015 FINDINGS: There are no areas of restricted diffusion to suggest acute infarction. The midline structures are intact. The paranasal sinuses are clear. The mastoid air cells are clear. The ventricles and sulci are within normal limits for age. There is no mass, hematoma, midline shift. The major vascular flow-voids at the skull base are well maintained. IMPRESSION: No acute intracranial abnormality. Electronically signed by: Jeremías Hernandez M.D. 05/15/2016 12:09 PM Dictated Date/Time: 05/15/2016 12:06 PM
--- NOTE | 2016-05-15 12:56 | Gastrointestinal Consultation ---
Gastrointestinal Consultation Date of Consultation: May 15, 2016 Attending Physician: Dr. Alfred Consulting Physician: Araseli Marion PA-C Reason for Consultation: Abdominal pain, nausea, CT findings of intussusception History of Present Illness Patient is a 41 year old female with a several week history of epigastric pain and severe nausea with a past medical history of lupus. Her symptoms began in March after her family had gastroenteritis. She reports that after that, she started having persistent nausea. When her abdominal pain began, it was epigastric in nature with some radiation to the RUQ. She underwent testing and due to findings of gallstones, she underwent a cholecystectomy. Her symptoms persisted. She took Zantac & a PPI for <10 days. SHe then had an EGD that indicated a hiatal hernia and mild gastritis, but there was no GI explanation for her pain. She recently stopped her Leflunomide. A repeat US was performed and was unremarkable, as were follow-up labs. She returned for further evaluation due to worsening nausea and experiencing an episode of chills. A CT scan was read as noting a small intussusception, but radiology felt that it was of questionable clinical significance. Surgery has consulted GI for further opinion regarding small bowel enteroscopy. She reports lack of appetite, constipation, & nausea. She has a family history of colon cancer, but is up to date with screening colonoscopies. Past Medical/Surgical History Medical Problems: (1) Intractable nausea and vomiting Status: Acute (2) Intussusception of small bowel Status: Acute Past Medical History: Lupus, depression, Migraine, Dysosmia, Nephrolithiasis Past Surgical History: Cholecystectomy, colonoscopy Social History Smoking Status: Never Smoker Marital Status: Housing Status: lives with family Occupation Status: unemployed Allergies Coded Allergies: Promethazine (Verified Adverse Reaction, Intermediate, Restlessness, ) Current Medications Home Meds and Scripts Medications Dose Route/Sig Max Daily Dose Days Date Category Dose Instructions Reglan (Metoclopramide HCl) 10 Mg Tab 10 Mg PO Q6H PRN 05/14/16 Reported NAUSEA Cholestyramine 4 Gm Pow 8 Mg PO TID 05/14/16 Reported Carafate (Sucralfate) 1 Gm/10 Ml Susp 10 Ml PO QID 05/14/16 Reported Prilosec (Omeprazole) 20 Mg Capcr 20 Mg PO BID 05/14/16 Reported Vitamin D3 (Cholecalciferol) 2,000 Unit Cap 2,000 Inter.unit PO HS 05/14/16 Reported Prednisone 1 Mg Tab 2 Mg PO HS 05/14/16 Reported Lexapro (Escitalopram Oxalate) 20 Mg Tab 20 Mg PO HS 05/14/16 Reported Lyrica (Pregabalin) 150 Mg Cap 150 Mg PO HS 05/14/16 Reported Arava (Leflunomide) 20 Mg Tab 20 Mg PO HS 05/14/16 Reported Plaquenil (Hydroxychloroquine Sulfate) 200 Mg Tab 400 Mg PO HS 05/14/16 Reported Review of Systems Constitutional: + chills, + fatigue, + weight loss, No fever Eyes: No problem reported ENT: No problem reported Respiratory: No cough, No shortness of breath Cardiac: No chest pain Abdomen: + constipation, + nausea, + pain, No GI bleeding, No diarrhea, No dysphagia, No vomiting Musculoskeletal: No joint pain Neuro: No problem reported Psych: No problem reported Skin: No problem reported Physical Exam Date Time Temp Pulse Resp B/P Pulse Ox O2 Delivery O2 Flow Rate FiO2 05/15/16 11:16 36.9 65 18 112/71 95 Room Air 05/15/16 08:50 Room Air 05/15/16 07:52 36.6 57 16 134/83 98 Room Air 05/15/16 07:28 36.5 05/15/16 01:35 36.6 56 16 125/84 100 Room Air 05/15/16 01:18 64 16 125/73 99 05/15/16 00:49 64 16 125/73 99 Room Air 05/14/16 23:06 53 18 111/71 100 Room Air 05/14/16 21:24 36.7 58 18 135/78 100 Room Air General Appearance: WD/WN, no apparent distress Eyes: normal inspection, PERRL ENT: hearing grossly normal Respiratory/Chest: lungs clear, normal breath sounds Cardiovascular: regular rate, rhythm Abdomen: normal bowel sounds, soft, + tenderness (epigastric) Extremities: non-tender Neurologic/Psych: alert, oriented x 3 Skin: normal color Laboratory Results Last 24 Hours Test 05/14/16 21:54 05/14/16 21:55 05/14/16 22:00 Urine Color YELLOW Urine Appearance CLEAR Urine pH 5.5 Urine Specific [place] 1.018 Urine Protein NEG Urine Glucose (UA) NEG Urine Ketones NEG Urine Occult Blood NEG Urine Nitrite NEG Urine Bilirubin NEG Urine Urobilinogen NEG Urine Leukocyte Esterase NEG Urine WBC (Auto) 1-5 /hpf Urine RBC (Auto) 0-4 /hpf Urine Hyaline Casts (Auto) 1-5 /lpf Urine Epithelial Cells (Auto) 20-30 /lpf Urine Bacteria (Auto) NEG Urine Test NEG White Blood Count 7.79 K/uL Red Blood Count 4.02 M/uL Hemoglobin 11.5 g/dL Hematocrit 34.7 % Mean Corpuscular Volume 86.3 fL Mean Corpuscular Hemoglobin 28.6 pg Mean Corpuscular Hemoglobin Concent 33.1 g/dl Platelet Count 267 K/uL Mean Platelet Volume 9.9 fL Neutrophils (%) (Auto) 45.3 % Lymphocytes (%) (Auto) 43.1 % Monocytes (%) (Auto) 8.6 % Eosinophils (%) (Auto) 2.4 % Basophils (%) (Auto) 0.5 % Neutrophils # (Auto) 3.52 K/uL Lymphocytes # (Auto) 3.36 K/uL Monocytes # (Auto) 0.67 K/uL Eosinophils # (Auto) 0.19 K/uL Basophils # (Auto) 0.04 K/uL RDW Standard Deviation 44.6 fL RDW Coefficient of Variation 14.1 % Immature Granulocyte % (Auto) 0.1 % Immature Granulocyte # (Auto) 0.01 K/uL Erythrocyte Sedimentation Rate 2 mm/hr Sodium Level 143 mmol/L Potassium Level 3.1 mmol/L Chloride Level 112 mmol/L Carbon Dioxide Level 24 mmol/L Anion Gap 7.0 mmol/L Blood Urea Nitrogen 9 mg/dl Creatinine 0.67 mg/dl Est Creatinine Clear Calc Drug Dose 118.4 ml/min Estimated GFR () 127.4 Estimated GFR (Non- 110.0 BUN/Creatinine Ratio 14.0 Random Glucose 76 mg/dl Calcium Level 8.0 mg/dl Magnesium Level 2.3 mg/dl Total Bilirubin 0.3 mg/dl Direct Bilirubin < 0.1 mg/dl Aspartate Amino Transf (AST/SGOT) 8 U/L Alanine Aminotransferase (ALT/SGPT) 19 U/L Alkaline Phosphatase 63 U/L Troponin I < 0.015 ng/ml C-Reactive Protein < 0.29 mg/dl Total Protein 6.2 gm/dl Albumin 3.2 gm/dl Amylase Level 36 U/L Lipase 213 U/L Human Chorionic Gonadotropin, Qual NEG Bedside Lactic Acid Venous 1.16 mmol/L Impression Patient is a 41 year old female with nausea & epigastric discomfort with CT evidence of intussusception. Plan Patient's case & imaging studies reviewed with advanced endoscopist Dr. Delarosa of [facility]. Recommendation is for double balloon enteroscopy as it does not seem feasible to evaluate abnormalities of intussusception on CT imaging with a push enteroscopy. Will coordinate with primary team for transfer to [facility] for further evaluation and treatment. Continue current treatment with PPI therapy (Protonix 40 mg daily as inpatient) , H2 piero (Zantac 150 mg BID), antiemetics, & IV fluids. Thank you for allowing us to participate in the care of this patient. If you should have any further questions or concerns, do not hesitate to contact us. Agree with TUNDE Mckinley as above Abd: Soft, Tender RUQ, ND, +BS Discussed case with Dr. Delarosa at [facility] and he felt that Double Balloon enteroscopy may help identify the source of her symptoms. Patient to be transferred to [facility] later today Continue current therapy
[2016-05-15] MEDS ORDERED: LORAZEPAM 2 MG/ML 1 ML VIAL IV STA (14:51)
--- NOTE | 2016-05-15 15:03 | Discharge Instructions ---
Discharge Instructions Date of Service May 15, 2016. Admission Reason for Admission: Inractable Abdominal Martell, Intussusception Of Small Discharge Discharge Diagnosis / Problem: intractable nausea and abdominal pain Discharge Goals Goal(s): Diagnostic testing, Therapeutic intervention Activity Recommendations Activity Limitations: as noted below as per [place] discharge . Current Hospital Diet Patient's current hospital diet: Discharge Diet Recommended Diet: N/A Pending Studies Studies pending at discharge: no Medical Emergencies . Who to Call and When: Medical Emergencies: If at any time you feel your situation is an emergency, please call 911 immediately. . Non-Emergent Contact Non-Emergency issues call your: Primary Care Provider Call Non-Emergent contact if: temperature is above 101, your pain is unusual for you . . "Provider Documentation" section prepared by Socrates Interiano. VTE Core Measure Inpt VTE Proph given/why not?: SCD's
[2016-05-15 15:14] VITALS: BP 112/71; PULSE 65; TEMP 36.9; O2SAT 95
[2016-05-15 15:42] VITALS: BP 124/78; PULSE 65; TEMP 36.8; O2SAT 96
--- NOTE | 2016-05-15 16:49 | Discharge Summary ---
Discharge Summary Date of Service May 15, 2016. Discharge Summary Admission Date: May 15, 2016 at 00:48 Discharge Date: May 15, 2016 Discharge Disposition: Acute care facility ([facility]) Principal Diagnosis: intractable abdominal pain, small bowel intussiseption Medication Reconciliation Discontinued Medications: Cholecalciferol (Vitamin D3) 2,000 Unit Cap 2000 INTER.UNIT PO HS, CAP 3 Refills Cholestyramine (Cholestyramine) 4 Gm Pow 8 MG PO TID Escitalopram Oxalate (Lexapro) 20 Mg Tab 20 MG PO HS, TAB Hydroxychloroquine Sulfate (Plaquenil) 200 Mg Tab 400 MG PO HS, TAB Leflunomide (Arava) 20 Mg Tab 20 MG PO HS, TAB Metoclopramide (Reglan) 10 Mg Tab 10 MG PO Q6H PRN for Nausea, TAB NAUSEA Omeprazole (Prilosec) 20 Mg Capcr 20 MG PO BID, CAP Prednisone (Prednisone) 1 Mg Tab 2 MG PO HS, TAB Pregabalin (Lyrica) 150 Mg Cap 150 MG PO HS, CAP Sucralfate (Carafate) 1 Gm/10 Ml Susp 10 ML PO QID, ML Discharge Exam Review of Systems: Constitutional: + fatigue, + sweats, + weakness, No chills, No fever Respiratory: No cough, No dyspnea on exertion, No shortness of breath Cardiovascular: No chest pain, No edema Abdomen: + nausea, + pain, No constipation, No diarrhea, No vomiting Musculoskeletal: No joint pain, No muscle pain Genitourinary - Female: No dysuria, No urinary frequency Psychiatric: + anxiety, No depression symptoms Physical Exam: General Appearance: WD/WN, + moderate distress Neck: supple, no JVD Respiratory/Chest: chest non-tender, lungs clear Cardiovascular: no murmur, + tachycardia Abdomen / GI: soft, + tenderness, + abnormal bowel sounds, + guarding Extremities: no pedal edema, normal range of motion Neurologic/Psychiatric: alert, oriented x 3 Hospital Course 41 F with intractable abdominal pain with nausea, small bowel intussusception seen on Ct Abdomen, requiring significant doses of parenteral pain and anti emetic meds. Discussion with GI medicine feels would benefit from small bowel push enteroscopy, which cannot be achieved here, spoke to Dr dotson at [facility] [place] [place] and will accept in transfer for further evaluation of Gi pain and nausea Total Time Spent: Greater than 30 minutes This includes examination of the patient, discharge planning, medication reconciliation, and communication with other providers. Discharge Instructions Please refer to the electronic Patient Visit Report (Discharge Instructions) for additional information.
[2016-05-15] MEDS ORDERED: LORAZEPAM INJ 0.5 MG in SYRINGE 0.75 ML IV PRN (17:00)
[2016-05-15] MEDS ORDERED: LORAZEPAM INJ 1 MG in SYRINGE 0.5 ML IV PRN (17:15)
[2016-06-10] MEDS ORDERED: HYDR200T5 PO (14:58)
[2016-06-10] MEDS ORDERED: MELO7.5T5 PO (14:58)
[2016-06-10] MEDS ORDERED: LORA-741 PO (14:58)
[2016-06-10] MEDS ORDERED: CHOL2000 PO (14:58)
[2016-06-10] MEDS ORDERED: PRED20TA PO (14:58)
[2016-06-10] MEDS ORDERED: ESCI1TAB10 PO (14:58)
[2016-06-10] MEDS ORDERED: VOLTAREN TOP (14:58)
[2016-06-10] MEDS ORDERED: PREG1CAP28 PO (14:58)
[2016-06-23] MEDS ORDERED: BACL10TA PO (08:16)
== END 2016-05-15 17:50 | disposition short-term general hospital (02) | DRG 390 ==
LOC: ENRESERVDT → ENRESERVTM → C.EDB 21:24 → C.4E 05-15 00:48
PROVIDERS: ADMIT Hospitalist; ATTEND Internal Medicine
DX: K56.1 Intussusception (principal); E86.0 Dehydration; M32.9 Systemic lupus erythematosus, unspecified; Z98.890 Other specified postprocedural states; Z90.49 Acquired absence of other specified parts of digestive tract; Z87.891 Personal history of nicotine dependence; Z79.51 Long term (current) use of inhaled steroids; Z79.899 Other long term (current) drug therapy

== ENCOUNTER → 2016-05-24 | Outpatient (CLI) | payer OTHER ==
[~2016-05-24] MED LIST changes: +BACL10TA PO; -BUPR200T2 PO; +CHOL2000 PO; +ESCI1TAB10 PO; +HYDR200T5 PO; +LORA-741 PO; -MAXALT; +MELO7.5T5 PO; -ONDA4TAB10 SL; +PRED20TA PO; +PREG1CAP28 PO; -PROM25TA9 PO; +VOLTAREN TOP
[2016-05-24 12:10] LABS: HEMATOCRIT 38.9 % (37-47); MEAN CELL VOLUME 88.4 fL (80-100); MEAN CORPUSCULAR HEMOGLOBIN 28.6 pg (25-34); MEAN CORPUSCULAR HGB CONC 32.4 g/dl (32-36); MEAN PLATELET VOLUME 10.7 fL (7.4-10.4); PLATELET COUNT 270 K/uL (130-400); WHITE BLOOD COUNT 7.48 K/uL (4.8-10.8)
[2016-05-24 12:25] LABS: ALB/GLOB RATIO 1.2 (0.9-2); ALKALINE PHOSPHATASE 59 U/L (45-117); ALT/SGPT 33 U/L (12-78); AST/SGOT 14 U/L (15-37); BLOOD UREA NITROGEN 10 mg/dl (7-18); BUN/CREATININE RATIO 14.5 (10-20); C-REACTIVE PROTEIN < 0.29 mg/dl (0-0.29); CALCIUM 8.7 mg/dl (8.5-10.1); CARBON DIOXIDE 27 mmol/L (21-32); CHLORIDE 110 mmol/L (98-107); CREATININE 0.66 mg/dl (0.60-1.20); GLUCOSE 88 mg/dl (70-99); POTASSIUM 3.9 mmol/L (3.5-5.1); SODIUM 143 mmol/L (136-145)
== END | disposition home or self-care (01) ==
LOC: C.LAB 11:01
PROVIDERS: ATTEND Family Medicine
DX: R10.9 Unspecified abdominal pain (principal); K56.1 Intussusception

== ENCOUNTER → 2016-05-26 | Outpatient (CLI) | payer OTHER ==
[~2016-05-26] MED LIST changes: +OPTIRAY 320 IV PRN
--- NOTE | 2016-05-26 11:16 | DIAGNOSTIC IMAGING REPORT ---
ABDOMEN AND PELVIS CT WITH IV AND ORAL CONTRAST CT DOSE: 1025.62 mGycm HISTORY: Generalized abdominal pain. TECHNIQUE: Multiaxial CT images of the abdomen and pelvis were performed following the use of intravenous and oral contrast. COMPARISON STUDY: Abdomen and pelvis CT 05/14/2016. FINDINGS: The lung bases are clear. No pneumoperitoneum. No pneumatosis. The pancreas, spleen, adrenal glands, and kidneys are unremarkable. Left circumaortic renal vein. No retroperitoneal lymphadenopathy. The bladder, uterus, bilateral adnexa are unremarkable. Stable 1 cm cyst within the right hepatic lobe. Cholecystectomy. Minimal fluid/fat stranding at the gallbladder fossa is almost completely resolved. No bowel wall thickening or obstruction. A few colonic diverticula. The small bowel intussusception has resolved. No evidence for bowel obstruction. IMPRESSION: 1. Prior cholecystectomy. Trace fluid/edema within the gallbladder fossa is almost completely resolved. 2. No bowel wall thickening or obstruction. Electronically signed by: Arley Tovar M.D. 05/26/2016 11:14 AM Dictated Date/Time: 05/26/2016 10:45 AM
== END | disposition home or self-care (01) ==
LOC: C.CTS 09:44
PROVIDERS: ATTEND Family Medicine
DX: R10.9 Unspecified abdominal pain (principal); R30.0 Dysuria

== ENCOUNTER → 2016-05-27 | Outpatient (CLI) | payer OTHER ==
[~2016-05-27] MED LIST changes: -OPTIRAY 320 IV PRN
[2016-05-27 20:15] LABS: BASO % 0.5 %; BASO ABS # 0.05 K/uL (0-0.2); COMPLETE YES; EOS % 1.4 %; HEMATOCRIT 35.7 % (37-47); IG% 0.3 %; LYMPH % 31.9 %; LYMPH ABS # 2.95 K/uL (1.2-3.4); MEAN CELL VOLUME 87.5 fL (80-100); MEAN CORPUSCULAR HEMOGLOBIN 29.2 pg (25-34); MEAN CORPUSCULAR HGB CONC 33.3 g/dl (32-36); MEAN PLATELET VOLUME 10.2 fL (7.4-10.4); NEUT % 56.9 %; PLATELET COUNT 280 K/uL (130-400); RED BLOOD COUNT 4.08 M/uL (4.2-5.4); WHITE BLOOD COUNT 9.26 K/uL (4.8-10.8)
[2016-05-27 20:45] LABS: ALKALINE PHOSPHATASE 56 U/L (45-117); ALT/SGPT 34 U/L (12-78); AMYLASE 44 U/L (25-115); AST/SGOT 15 U/L (15-37); C-REACTIVE PROTEIN < 0.29 mg/dl (0-0.29)
== END | disposition home or self-care (01) ==
LOC: C.LAB 19:46
PROVIDERS: ATTEND Colon & Rectal Surgery
DX: R10.9 Unspecified abdominal pain (principal)

== ENCOUNTER → 2016-05-29 | Outpatient (CLI) | payer OTHER ==
[~2016-05-29] MED LIST changes: +OPTIRAY 320 IV PRN
--- NOTE | 2016-05-29 07:48 | DIAGNOSTIC IMAGING REPORT ---
CT angiogram ANGIO ABDOMEN COMBO CLINICAL HISTORY: r10.9 lupus, r/o vasculitis pain TECHNIQUE: Transaxial acquisition with multi axial reformatted images COMPARISON STUDY: None FINDINGS: Normal arterial flow throughout the abdomen and pelvis., Aorta as well as iliac vasculature is unremarkable. Celiac axis renal arteries and superior mesenteric artery are unremarkable are unremarkable. IMPRESSION: Normal study Electronically signed by: Jeremías Hernandez M.D. 05/29/2016 7:46 AM Dictated Date/Time: 05/29/2016 7:36 AM
== END | disposition home or self-care (01) ==
LOC: C.CTS 06:36
PROVIDERS: ATTEND Colon & Rectal Surgery
DX: R10.9 Unspecified abdominal pain (principal)

== ENCOUNTER → 2016-05-30 | Outpatient (CLI) | payer OTHER ==
[~2016-05-30] MED LIST changes: -OPTIRAY 320 IV PRN
--- NOTE | 2016-05-30 07:56 | DIAGNOSTIC IMAGING REPORT ---
MRCP CLINICAL HISTORY: ABD PAIN nausea TECHNIQUE: Multiaxial MRI COMPARISON STUDY: CT abdomen and pelvis 05/26/2016, ultrasound 05/13/2016 FINDINGS: Prior cholecystectomy. 9 mm upper right hepatic lobe hepatic cyst. Liver is otherwise uniform. Pancreas and spleen are unremarkable. The MRCP component of the study is unremarkable postcholecystectomy. There are no filling defects. Kidneys are uniform in overall signal character. No evidence for hydronephrosis. No upper abdominal adenopathy. Bowel pattern is nonobstructive. IMPRESSION: Negative study status post cholecystectomy. Unremarkable biliary and pancreatic ductal system. Electronically signed by: Jeremías Hernandez M.D. 05/30/2016 7:54 AM Dictated Date/Time: 05/30/2016 7:47 AM
== END | disposition home or self-care (01) ==
LOC: C.MRIBC 06:57
PROVIDERS: ATTEND Colon & Rectal Surgery
DX: R10.9 Unspecified abdominal pain (principal)

== ENCOUNTER → 2016-06-02 | Outpatient (CLI) | payer OTHER | END | disposition home or self-care (01) | LOC: C.LAB 18:11 | PROVIDERS: ATTEND Family Medicine | DX: R10.9 Unspecified abdominal pain (principal); Z51.81 Encounter for therapeutic drug level monitoring; Z79.52 Long term (current) use of systemic steroids ==

== ENCOUNTER → 2016-06-02 | Outpatient (CLI) | payer OTHER ==
--- NOTE | 2016-06-02 11:15 | DIAGNOSTIC IMAGING REPORT ---
SMALL BOWEL STUDY CLINICAL HISTORY: Generalized abdominal pain. Nausea. COMPARISON STUDY: Abdomen and pelvis CT 05/26/2016. FLUOROSCOPY TIME: 1.1 minute. 11 images submitted.. FINDINGS: The patient swallowed barium without difficulty. Rapid transit of contrast from the stomach through the small bowel and into the proximal colon which was less than 10 minutes. The small bowel is normal in course and caliber. No evidence for bowel obstruction. Normal fold pattern within the small bowel. The terminal ileum is normally distensible. IMPRESSION: 1. Rapid transit of contrast from the stomach through the small bowel into the proximal colon which is less than 10 minutes which is considered abnormal. 2. Otherwise, no abnormality within the small bowel. No evidence for intussusception. Electronically signed by: Arley Tovar M.D. 06/02/2016 11:13 AM Dictated Date/Time: 06/02/2016 11:08 AM
== END | disposition home or self-care (01) ==
LOC: C.RAD 10:28
PROVIDERS: ATTEND Colon & Rectal Surgery
DX: R10.9 Unspecified abdominal pain (principal); R93.3 Abnormal findings on diagnostic imaging of other parts of digestive tract

== ENCOUNTER → 2016-06-19 | Outpatient (CLI) | payer OTHER | END | disposition home or self-care (01) | LOC: C.LABBC 09:46 | PROVIDERS: ATTEND Anesthesiology | DX: M79.1 Myalgia (principal) ==

== ENCOUNTER → 2016-07-14 | Outpatient (CLI) | payer OTHER ==
[2016-07-14 17:00] LABS: HEMATOCRIT 37.6 % (37-47)
[2016-07-14 17:19] LABS: PROLACTIN 8.06 ng/mL
== END | disposition home or self-care (01) ==
LOC: C.LABBC 14:03
PROVIDERS: ATTEND Obstetrics & Gynecology
DX: N92.6 Irregular menstruation, unspecified (principal)

== ENCOUNTER → 2016-08-09 | Outpatient (CLI) | payer OTHER ==
[2016-08-09 12:41] LABS: HEMATOCRIT 40.7 % (37-47); MEAN CELL VOLUME 89.8 fL (80-100); MEAN CORPUSCULAR HEMOGLOBIN 28.3 pg (25-34); MEAN CORPUSCULAR HGB CONC 31.4 g/dl (32-36); PLATELET COUNT 280 K/uL (130-400); RED BLOOD COUNT 4.53 M/uL (4.2-5.4)
[2016-08-09 13:18] LABS: BLOOD UREA NITROGEN 9 mg/dl (7-18); BUN/CREATININE RATIO 13.8 (10-20); CALCIUM 8.4 mg/dl (8.5-10.1); CARBON DIOXIDE 28 mmol/L (21-32); CHLORIDE 108 mmol/L (98-107); CREATININE 0.66 mg/dl (0.60-1.20); GLUCOSE 84 mg/dl (70-99); POTASSIUM 4.1 mmol/L (3.5-5.1); SODIUM 142 mmol/L (136-145)
[2016-08-09 13:27] LABS: ALB/GLOB RATIO 1.3 (0.9-2); ALKALINE PHOSPHATASE 56 U/L (45-117); ALT/SGPT 32 U/L (12-78); AST/SGOT 20 U/L (15-37)
== END | disposition home or self-care (01) ==
LOC: C.LAB 12:06
PROVIDERS: ATTEND Family Medicine
DX: M32.10 Systemic lupus erythematosus, organ or system involvement unspecified (principal); I99.8 Other disorder of circulatory system

== ENCOUNTER → 2016-10-30 | Outpatient (CLI) | payer OTHER ==
--- NOTE | 2016-10-31 12:34 | MAMMOGRAPHY REPORT ---
BILATERAL DIGITAL SCREENING MAMMOGRAM TOMOSYNTHESIS WITH CAD: 10/30/2016 CLINICAL HISTORY: Routine screening. Routine screening. TECHNIQUE: Breast tomosynthesis in addition to standard 2D mammography was performed. Current study was also evaluated with a Computer Aided Detection (CAD) system. COMPARISON: Comparison is made to exams dated: 08/23/2014 ultrasound and 08/23/2014 mammogram - [facility]. BREAST COMPOSITION: The tissue of both breasts is heterogeneously dense, which may obscure small mas ses. FINDINGS: There are possible grouped calcifications in the right lower inner quadrant, for which spo t magnification views are recommended for further evaluation. The remainder of both breasts are stable compared to prior exams, without suspicious masses, calcific ations, or areas of architectural distortion noted. Other scattered bilateral benign-appearing calci fications do not appear significantly changed. A few small partially circumscribed benign-appearing m asses are noted bilaterally, which likely represent cysts as multiple cysts were seen on a 2015 ultra sound exam. IMPRESSION: ACR BI-RADS CATEGORY 0: INCOMPLETE EVALUATION: NEED ADDITIONAL IMAGING EVALUATION Right lower inner quadrant calcifications, for which additional imaging evaluation is recommended. T he patient will be called to schedule an appointment. Approximately 10% of breast cancers are not detected with mammography. A negative mammographic report should not delay biopsy if a clinically suggestive mass is present. Lyn London M.D. ah/:10/30/2016 16:16:43 Personal Financial Representative: Siobhan BREWER)(Crissy), [facility] letter sent: Addl Imaging 0 BI-RADS Code: ACR BI-RADS Category 0: Incomplete Evaluation: Need Additional Imaging Evaluation
== END | disposition home or self-care (01) ==
LOC: C.MAMM 11:51
PROVIDERS: ATTEND Student in an Organized Health Care Education/Training Program
DX: Z12.31 Encounter for screening mammogram for malignant neoplasm of breast (principal); R92.1 Mammographic calcification found on diagnostic imaging of breast

== ENCOUNTER → 2016-11-05 | Outpatient (CLI) | payer OTHER ==
--- NOTE | 2016-11-05 14:21 | MAMMOGRAPHY REPORT ---
UNILATERAL RIGHT DIGITAL DIAGNOSTIC MAMMOGRAM: 11/05/2016 CLINICAL HISTORY: Callback from screening mammogram for right breast calcifications. TECHNIQUE: Spot magnification right cc and ML views were obtained. COMPARISON: Comparison is made to exams dated: 10/30/2016 mammogram, 08/23/2014 ultrasound, and 08/23/2014 mammogram - [facility]. BREAST COMPOSITION: The tissue of the right breast is heterogeneously dense, which may obscure small masses. FINDINGS: Spot magnification views demonstrate punctate benign-appearing calcifications scattered th roughout the right medial breast. There is one loosely grouped area of calcifications within the rig ht 6:00 breast; the calcifications are smudgy and difficult to visualize on the cc view, however, the calcifications become more linear on the lateral view, consistent with layering and consistent with benign milk of calcium. The majority of the other scattered calcifications also demonstrate layering on the lateral view, consistent with benign milk of calcium. No suspicious cluster of microcalcific ations is seen. IMPRESSION: ACR BI-RADS CATEGORY 2: BENIGN Loosely grouped calcifications in the right 6:00 breast are benign and compatible with milk of calciu m. There is no mammographic evidence of malignancy. A 1 year screening mammogram is recommended. The patient has been verbally notified of the results. Approximately 10% of breast cancers are not detected with mammography. A negative mammographic report should not delay biopsy if a clinically suggestive mass is present. Lyn London M.D. /:11/05/2016 10:18:11 Flat Bed Knitter: Fariha BREWER)(Crissy), [facility] letter sent: Normal 1/2 BI-RADS Code: ACR BI-RADS Category 2: Benign
== END | disposition home or self-care (01) ==
LOC: C.MAMM 09:52
PROVIDERS: ATTEND Student in an Organized Health Care Education/Training Program
DX: R92.1 Mammographic calcification found on diagnostic imaging of breast (principal)

== ENCOUNTER → 2017-03-09 | Outpatient (CLI) | payer OTHER ==
[2017-03-09 18:49] LABS: BASO % 0.6 %; BASO ABS # 0.03 K/uL (0-0.2); EOS % 2.7 %; EOS ABS # 0.13 K/uL (0-0.5); HEMATOCRIT 38.2 % (37-47); HEMOGLOBIN 12.5 g/dL (12.0-16.0); IG# 0.01 K/uL (0.00-0.02); LYMPH % 40.6 %; LYMPH ABS # 1.96 K/uL (1.2-3.4); MEAN CELL VOLUME 88.8 fL (80-100); MEAN CORPUSCULAR HEMOGLOBIN 29.1 pg (25-34); MEAN CORPUSCULAR HGB CONC 32.7 g/dl (32-36); MONO % 16.8 %; MONO ABS # 0.81 K/uL (0.11-0.59); NEUT % 39.1 %; NEUT ABS # 1.89 K/uL (1.4-6.5); PLATELET COUNT 226 K/uL (130-400); RED CELL DISTRIBUTION WIDTH CV 15.1 % (11.5-14.5); RED CELL DISTRIBUTION WIDTH SD 48.7 fL (36.4-46.3); WHITE BLOOD COUNT 4.83 K/uL (4.8-10.8)
[2017-03-09 19:16] LABS: ALBUMIN 3.7 gm/dl (3.4-5.0); ALT/SGPT 32 U/L (12-78); AST/SGOT 18 U/L (15-37); BLOOD UREA NITROGEN 15 mg/dl (7-18); CALCIUM 8.4 mg/dl (8.5-10.1); CARBON DIOXIDE 27 mmol/L (21-32); CREATININE 0.63 mg/dl (0.60-1.20); GLUCOSE 83 mg/dl (70-99); POTASSIUM 3.8 mmol/L (3.5-5.1); SODIUM 138 mmol/L (136-145)
[2017-03-09 19:24] LABS: ALKALINE PHOSPHATASE 53 U/L (45-117)
== END | disposition home or self-care (01) ==
LOC: C.LAB 18:19
PROVIDERS: ATTEND Family Medicine
DX: L93.0 Discoid lupus erythematosus (principal)

== ENCOUNTER → 2017-03-18 | Outpatient (CLI) | payer OTHER ==
[2017-03-18 13:50] LABS: INFLUENZA B ANTIGEN Neg for Influ B (NEG)
== END | disposition home or self-care (01) ==
LOC: C.LAB 11:56
PROVIDERS: ATTEND Family Medicine
DX: R50.9 Fever, unspecified (principal); R05 Cough

== ENCOUNTER 2018-07-22 08:19 | Inpatient (IN) ==
[2018-07-22] MEDS ORDERED: POLYETHYLENE (MIRALAX) 17 GM PACK PO PRN (09:14)
[2018-07-22] MEDS ORDERED: ACETAMINOPHEN 325 MG TAB PO PRN (09:14)
[2018-07-22] MEDS ORDERED: HYDROmorphone INJ 1 MG/ML SYRINGE IV PRN (09:30)
[2018-07-22] MEDS ORDERED: HYDROmorphone INJ 1 MG/ML SYRINGE IV STA (09:30)
[2018-07-22] MEDS: PREGABALIN 100 MG CAP PO SCH ×2 (09:33→20:55)
[2018-07-22 09:35] LABS: Basophils # (auto) 0.04 K/uL (0-0.2); Basophils % (auto) 0.3 %; Eosinophils # (auto) 0.21 K/uL (0-0.5); Eosinophils % (auto) 1.5 %; Hematocrit (blood only) 39.1 % (37-47); Hemoglobin 12.7 g/dL (12.0-16.0); Immature Granulocytes # (auto) 0.06 K/uL (0.00-0.02); Immature Granulocytes % (auto) 0.4 %; Lymphocytes # (auto) 2.23 K/uL (1.2-3.4); Lymphocytes % (auto) 15.8 %; Mean Corpuscular Hgb Conc 32.5 g/dL (32-36); Mean Corpuscular Volume 87.3 fL (80-100); Mean Platelet Volume 9.2 fL (7.4-10.4); Monocytes # (auto) 1.04 K/uL (0.11-0.59); Monocytes % (auto) 7.4 %; Neutrophils # (auto) 10.56 K/uL (1.4-6.5); Neutrophils % (auto) 74.6 %; Platelet Count 248 K/uL (130-400); RDW Standard Deviation 48.3 fL (36.4-46.3); Red Blood Count 4.48 M/uL (4.2-5.4); White Blood Count 14.14 K/uL (4.8-10.8)
[2018-07-22 10:01] LABS: BUN Creatinine Ratio 19.9 (10-20); Blood Urea Nitrogen 13 mg/dl (7-18); C Reactive Protein < 0.29 mg/dl (0-0.29); Calcium 8.5 mg/dl (8.5-10.1); Carbon Dioxide 26 mmol/L (21-32); Chloride 108 mmol/L (98-107); Creatinine Clr Calc Pharmacy 116.4 ml/min; Est GFR (African American) 125.7; Est GFR (Non-African American) 108.4; Glucose 90 mg/dl (70-99); Potassium 3.7 mmol/L (3.5-5.1); Sodium 139 mmol/L (136-145)
[2018-07-22] MEDS ORDERED: NALOXONE HCL 0.4 MG/1 ML VIAL/CARP IV PRN (10:31)
[2018-07-22] MEDS ORDERED: HYDROmorphone HCL 0.5MG/ML 50 ML CASSETTE IV PRN (10:31)
[2018-07-22] MEDS ORDERED: KETOROLAC TROMETHAMINE 15 MG/ML VIAL IV PRN (10:36)
[2018-07-22] MEDS ORDERED: SODIUM CHLORIDE 0.9% 1000ML 1,000 ML IV SCH (10:45)
[2018-07-22] MEDS: ONDANSETRON INJ 2 MG/ML 2 ML VIAL IV PRN ×2 (10:49→21:51)
[2018-07-22] MEDS ORDERED: LORazepam 0.5 MG/1 ML VIAL IV PRN (10:54)
[2018-07-22] MEDS ORDERED: MIDAZOLAM HCL 1 MG/ML 2ML VIAL ONE ×5 (13:44→14:51)
[2018-07-22] MEDS ORDERED: PROPOFOL IV EMULSION 10 MG/ML 20 ML VIAL IV ONE (13:44)
[2018-07-22] MEDS: ACETAMINOPHEN 500 MG TAB PO SCH ×2 (13:48→22:30)
[2018-07-22] MEDS ORDERED: ONDANSETRON INJ 2 MG/ML 2 ML VIAL ONE (13:48)
[2018-07-22] MEDS: DEXAMETHASONE SOD PHOSPHATE 4 MG in SYRINGE 0 ML IV SCH ×2 (13:48→21:51)
--- NOTE | 2018-07-22 14:09 | Anesthesiology Consultation ---
Date of Service July 22, 2018 Assessment & Plan (1) Encounter for pre-operative examination: Chart Review Chart Review: Acceptable Risk for Surgery and Patient NOT seen in Pre Admission Testing Consults Requested none History Surgery Operation Date: 07/22/18 10:50 Proposed Procedures p Cervical Spine MRI with Anesthesia Sedation - Socrates Interiano MD Height/Weight Height: 5 ft 5 in Weight: 83 kg Allergies Allergy/AdvReac Type Severity Reaction Status Date / Time promethazine AdvReac Intermediate Restlessnes Verified 07/21/18 10:41 s Medications Home Medications Medication Instructions Recorded Confirmed Last Taken cholecalciferol (vitamin D3) 2,000 2,000 units PO DAILY 11/25/17 07/21/18 01/26/18 08:00 unit capsule hydroxychloroquine 200 mg tablet 200 mg PO BID tab 11/25/17 07/21/18 01/26/18 22:00 meloxicam 15 mg tablet 15 mg PO DAILY PRN 11/25/17 07/21/18 Unknown diclofenac 1 % topical gel 2 gm TOP QID PRN #100 gm 12/23/17 07/21/18 01/24/18 buspirone 10 mg PO BID 01/19/18 07/21/18 01/27/18 10:00 escitalopram oxalate [Lexapro] 20 mg PO QPM 01/19/18 07/21/18 01/26/18 22:00 leflunomide 20 mg PO DAILY 01/19/18 07/21/18 01/26/18 08:00 pregabalin 150 mg capsule 150 mg PO BID #60 cap 04/07/18 07/21/18 Unknown oxycodone 5 mg tablet 5 mg PO QID PRN tab 07/21/18 07/21/18 Unknown Active Medications Generic Name Dose Route Start Last Admin Trade Name Freq PRN Reason Stop Dose Admin Acetaminophen 1,000 mg 07/22/18 14:00 07/22/18 13:48 Tylenol PO 08/21/18 13:59 1,000 mg Q8 ROBERT Administration Hydromorphone HCl 25 mg 07/22/18 10:31 07/22/18 11:19 Dilaudid Mathematical Engineer IV 08/05/18 10:30 25 mg PRN PRN Administration Pain Protocol Dexamethasone Sodium Phosphate 1 mls @ 1 mls/min 07/22/18 14:00 07/22/18 13:48 4 mg/ Syringe IV 08/21/18 13:59 1 mls/min Q8 ROBERT Administration Sodium Chloride 1,000 mls @ 15 mls/hr 07/22/18 10:45 07/22/18 10:47 Nss 1000ml IV 08/05/18 10:32 15 mls/hr .Q24H ROBERT Administration Ondansetron HCl 4 mg 07/22/18 09:14 07/22/18 10:49 Zofran IV 08/21/18 09:13 4 mg Q6H PRN Administration Nausea Pregabalin 200 mg 07/22/18 09:30 07/22/18 09:33 Lyrica PO 08/21/18 09:29 200 mg BID ROBERT Administration Past Medical History Medical History Abdominal migraine (Suspected) Myofascial pain (Chronic) Epigastric pain (Chronic) Depression (Chronic) Anxiety (Chronic) Lupus (Chronic) Intractable abdominal pain (Chronic) Exercise / Class Metabolic Activity II 4-5 Yardwork/Stairs/Walk up hill Past Surgical History Surgical History History of esophagogastroduodenoscopy (EGD) (Resolved) S/P appendectomy (Resolved) S/P cholecystectomy (Resolved) Past Anesthesia History No Hx of Anesthesia Complications and No Family Hx of Anesthesia Complications History of PONV No Hx of PONV and No Hx of Motion Sickness Social History Smoking Status: Never smoker Hx Alcohol Use: Yes Alcohol type: wine alcohol intake frequency: a few times a month Hx Substance Use: No substance use type: does not use Physical Exam Vital Signs Last Vital Signs Temp 36.8 C 07/22/18 09:55 Pulse 62 07/22/18 09:55 Resp 18 07/22/18 09:55 BP 113/65 07/22/18 09:55 Pulse Ox 100 07/22/18 09:55 Testing Laboratory Results 07/22/18 09:24 07/22/18 09:24
[2018-07-22] MEDS ORDERED: ePHEDrine sulfate 50 MG/ML AMP IV PRN (14:34)
[2018-07-22] MEDS ORDERED: ATROPINE SULFATE 0.1 MG/ML 10ML SYR IV PRN (14:34)
[2018-07-22] MEDS ORDERED: KETAMINE HCL INJ 50 MG/ML 10 ML VIAL ONE (14:58)
[2018-07-22] MEDS ORDERED: ONDANSETRON INJ 2 MG/ML 2 ML VIAL IV PRN (15:45)
--- NOTE | 2018-07-22 15:46 | Anesthesiology Progress Note ---
Date of Service July 22, 2018 Anesthesia Post Procedure Vital Signs Vital Signs: Temp Pulse Resp BP Pulse Ox 07/22/18 09:55 36.8 C 62 18 113/65 100 Pain Intensity Neck: Pain Intensity: 7 Transfer of Care Handoff Completed per policy Notes Mental Status: alert / awake / arousable and participated in evaluation Patient Amnestic to Procedure: Yes Nausea / Vomiting: adequately controlled Pain: adequately controlled Airway Patency, RR, SpO2: stable & adequate BP & HR: stable & adequate Hydration State: stable & adequate Anesthetic Complications: no major complications apparent and Pt Satisfied with anesthetic care
--- NOTE | 2018-07-22 16:04 | Magnetic Resonance Report ---
CERVICAL SPINE MRI HISTORY: Right-sided arm pain. acute radiculopathy TECHNIQUE: Multiplanar multisequence MRI of the cervical spine was performed without the use of contr ast. COMPARISON STUDY: None. FINDINGS: Significantly compromised study due to the extensive motion artifact. However, there is no fracture or subluxation. The visualized posterior fossa is unremarkable. The cervical spinal cord lik wiliam demonstrates normal signal intensity. This spaces are preserved for age. Prevertebral soft tissue s and the C1-C2 interval appear intact. C2-C3: No significant central canal or neural foraminal narrowing. C3-C4: No significant central canal or neural foraminal narrowing. C4-C5: No significant central canal or neural foraminal narrowing. C5-C6: There is a 7 x 6 mm right paracentral focal disc protrusion best seen on sagittal image 6 and axial image 15 of 24. This appears to result in mild impression along the right anterior thecal sac. This also likely compresses the exiting right nerve root at this level. C6-C7: No significant central canal or neural foraminal narrowing. C7-T1: No significant central canal or neural foraminal narrowing. IMPRESSION: 1. The study is significantly compromised due to the extensive motion artifact. 2. There is a 7 x 6 mm right paracentral focal disc protrusion at C5-C6 which likely compresses the e xiting nerve root at this level. 3. No fracture or subluxation. Electronically signed by: Arley Tovar M.D. 07/22/2018 4:03 PM
--- NOTE | 2018-07-22 18:27 | History & Physical Report ---
Date of Service July 22, 2018 Assessment & Plan (1) Cervical radiculopathy: Patient is significant pain ATTENDING UROLOGIST and steroids were administered. His MRI was performed which shows the following C5-C6: There is a 7 x 6 mm right paracentral focal disc protrusion best seen on sagittal image 6 and axial image 15 of 24. This appears to result in mild impression along the right anterior thecal sac. This also likely compresses the exiting right nerve root at this level. I personally discussions with Dr. Bryant with orthospine surgery and also Dr. Cornell with pain management Dr. Bryant and the doctor agreed that we will pursue a possible epidural injection and if this is no improvement may consider surgical approach however we will pursue surgical approach as a last resort Plans are for a parenteral pain management and then eventual epidural injection in the pain management office (2) Depression: Patient will continue her bupropion and Lexapro (3) Lupus: Lupus is stable at this time on Plaquenil and leflunomide (4) DVT prophylaxis: SCDs History of Present Illness Primary Care Provider: Myra Jones DO Patient presents with right neck and arm radicular pain with some altered levels of sensation radiating from her right posterior neck down her arm to worse her thumb side of her hand. The patient reportedly woke up like this approximately 11 days ago. The patient has tried outpatient modalities including scheduled Tylenol ibuprofen prednisone tapering dose some PRN oxycodone. Patient did see pain management and had physical therapy recommended. Physical therapy created an increased flare of her pain in intensity. The patient subsequently was prescribed an outpatient MRI of which she could not tolerate due to position and some claustrophobia. The patient's pain escalated she is brought in as an observation to her parenteral pain contr ol she is placed on a ATTENDING UROLOGIST and intravenous dexamethasone. Patient underwent an MRI with assistance of anesthesia for sedation and she was discovered to have a C5-6 right-sided protrusion of the disc with likely nerve root impingement. Patient is feeling somewhat better Allergies Allergy/AdvReac Type Severity Reaction Status Date / Time promethazine AdvReac Intermediate Restlessnes Verified 07/23/18 08:38 s Home Medications Home Medications Medication Instructions Recorded Confirmed Type cholecalciferol (vitamin D3) 2,000 2,000 units PO DAILY 11/25/17 07/23/18 History unit capsule hydroxychloroquine 200 mg tablet 200 mg PO BID tab 11/25/17 07/23/18 History diclofenac 1 % topical gel 2 gm TOP QID PRN #100 gm 12/23/17 07/23/18 Rx buspirone 10 mg PO BID 01/19/18 07/23/18 History escitalopram oxalate [Lexapro] 20 mg PO QPM 01/19/18 07/23/18 History leflunomide 20 mg PO DAILY 01/19/18 07/23/18 History pregabalin 150 mg capsule 150 mg PO BID #60 cap 04/07/18 07/23/18 Rx oxycodone 10 mg PO QID PRN #30 tab 07/22/18 07/23/18 Rx Past Med/Surg History Social History Preferred Language: Uzbek Communication Ability: Effective Visual Impairment: No Limitations Hearing Ability: Normal Beliefs That Will Affect Care: None marital status: Current Living Situation: Spouse current occupational status: employed current occupation: Subsitute Teacher Feels Safe at Home: Yes Smoking Status: Never smoker Second Hand Exposure: No Hx Alcohol Use: Yes Alcohol type: wine Hx Substance Use: No Review of Systems Review of Systems: ROS: well nourished well developed. In moderate distress No double vision blurry vision No problems with speech or swallowing No palpitations, chest pain or pressure No Wheezing or breathing issues No abdominal pain nausea vomiting diarrhea changes in appetite or weight No burning urine urine frequency or changes in color Focal pain from her right neck down her arm around towards the ulnar side and radiating to the right thumb patient claims have altered sensation on the thumb side of her hand compared to the ulnar side of her hand No skin rashes or oral lesions No unusual bruising or bleeding No focused back pain or numbness or loss of strength No changes in memory or confusion Physical Exam Physical Exam: The patient appeared well nourished and normally developed. But moderately distressed from pain Vital signs as documented. Head exam is unremarkable. normocephalic, atraumatic Neck is without jugular venous distension, thyromegaly, or lymphademopathy Lungs are clear to auscultation and percussion. Cardiac exam reveals Rhythm is regular. First and second heart sounds normal. Abdominal exam reveals normal bowel sounds, no masses, no organomegaly Extremities are nonedematous and both pedal pulses are present Neurologic exam is A&Ox3, patient has some focal decreased sensation around her thumb her strength is limited by pain to 4/5 in her right arm reflexes are hyperreflexic though at her biceps she has focal reproducible point tenderness in the right posterior neck Psychologically seems neither anxious or depressed Skin is warm Dry without bruises or lesions Results & Data Vital Signs (Past 12 Hours) Vital Signs Temp Pulse Pulse Resp BP Pulse Ox 07/22/18 16:19 36.6 C 67 18 125/72 99 07/22/18 16:00 36.6 C 69 15 121/82 96 07/22/18 15:50 69 18 127/82 97 07/22/18 15:42 36.4 C L 78 16 134/80 95 07/22/18 09:55 36.8 C 62 18 113/65 100
[2018-07-22] MEDS ORDERED: DOCUSATE SODIUM/SENNA 50/8.6MG TAB PO SCH (21:00)
[2018-07-22] MEDS ORDERED: ESCITALOPRAM OXALATE 20 MG TAB PO SCH (21:00)
[2018-07-22] MEDS ORDERED: HYDROXYCHLOROQUINE SULFATE 200 MG TAB PO SCH (21:00)
[2018-07-23] MEDS: ACETAMINOPHEN 500 MG TAB PO SCH (05:55)
[2018-07-23] MEDS: DEXAMETHASONE SOD PHOSPHATE 4 MG in SYRINGE 0 ML IV SCH (06:13)
[2018-07-23] MEDS ORDERED: BuPROPion SR 150 MG TABCR PO SCH (09:00)
[2018-07-23] MEDS ORDERED: LEFLUNOMIDE 10 MG TAB PO SCH (09:00)
--- NOTE | 2018-07-23 15:56 | Orthopedic Consultation ---
Date of Consultation July 23, 2018 Assessment & Plan (1) Cervical radiculopathy: MRI does reveal evidence of acute disc herniation C5-6 on the right with concordant with her symptom complex. Discussed these findings with the patient. I am recommending a trial of cervical epidural injections. If she fails to respond she may need to consider surgical intervention. Stands agrees. Present on Admission?: Yes History of Present Illness Reason for Consultation: Neck and arm pain Attending Physician: Socrates Interiano MD History of Present Illness Is a very pleasant 43-year-old female who presents with severe right-sided neck and right arm radiculopathy. This been present approximately 2 weeks. She denies any precipitating trauma fall or event. The pain does radiate down the arm into the thumb and index finger. Is been quite incapacitating and unresponsive to oral medications and steroids. Allergies Allergy/AdvReac Type Severity Reaction Status Date / Time promethazine AdvReac Intermediate Restlessnes Verified 07/23/18 08:38 s Home Medications Home Medications Medication Instructions Recorded Confirmed Type cholecalciferol (vitamin D3) 2,000 2,000 units PO DAILY 11/25/17 07/23/18 History unit capsule hydroxychloroquine 200 mg tablet 200 mg PO BID tab 11/25/17 07/23/18 History diclofenac 1 % topical gel 2 gm TOP QID PRN #100 gm 12/23/17 07/23/18 Rx buspirone 10 mg PO BID 01/19/18 07/23/18 History escitalopram oxalate [Lexapro] 20 mg PO QPM 01/19/18 07/23/18 History leflunomide 20 mg PO DAILY 01/19/18 07/23/18 History pregabalin 150 mg capsule 150 mg PO BID #60 cap 04/07/18 07/23/18 Rx oxycodone 10 mg PO QID PRN #30 tab 07/22/18 07/23/18 Rx Patient History Social History Preferred Language: Guatemalan Communication Ability: Effective Visual Impairment: No Limitations Hearing Ability: Normal Beliefs That Will Affect Care: None marital status: Current Living Situation: Spouse current occupational status: employed current occupation: Subsitute Teacher Feels Safe at Home: Yes Smoking Status: Never smoker Second Hand Exposure: No Hx Alcohol Use: Yes Alcohol type: wine Hx Substance Use: No Physical Exam Physical Exam: Exam she is ambulate with a narrow steady gait. She does have a markedly positive Spurling's to the right. Limited cervical extension. She does have weakness to testing the right biceps and grasp compared to 5/5 strength to the left. Results & Data Vital Signs (Past 12 Hours) Vital Signs Temp Pulse Pulse Resp BP Pulse Ox 07/23/18 07:30 36.7 C 76 16 115/69 94 07/23/18 07:29 36.5 C 73 62 18 122/74 90
--- NOTE | 2018-07-23 18:17 | Discharge Summary ---
Date of Service July 23, 2018 Admission HPI Per Admitting Provider Patient presents with right neck and arm radicular pain with some altered levels of sensation radiating from her right posterior neck down her arm to worse her thumb side of her hand. The patient reportedly woke up like this approximately 11 days ago. The patient has tried outpatient modalities including scheduled Tylenol ibuprofen prednisone tapering dose some PRN oxycodone. Patient did see pain management and had physical therapy recommended. Physical therapy created an increased flare of her pain in intensity. The patient subsequently was prescribed an outpatient MRI of which she could not tolerate due to position and some claustrophobia. The patient's pain escalated she is brought in as an observation to her parenteral pain control she is placed on a CLINICAL MEDICAL TRANSCRIPTIONIST and intravenous dexamethasone. Patient underwent an MRI with assistance of anesthesia for sedation and she was discovered to have a C5-6 right-sided protrusion of the disc with likely nerve root impingement. Patient is feeling somewhat better Principal Diagnosis c5-6 cervical radiculopathy Discharge Exam improved pain to her right neck and arm, less paresthesias Discharge Data Allergies Allergy/AdvReac Type Severity Reaction Status Date / Time promethazine AdvReac Intermediate Restlessnes Verified 07/23/18 08:38 s Consultations 07/22/18 09:14 Consult Anesthesiology Routine 07/22/18 16:33 Consult Orthopedic Surgery Routine Procedures Performed Operation Date: 07/22/18 10:50 <No data on this case meets the specified criteria> Ordered Studies 07/22/18 13:06 MR cervical spine wo con Stat Hospital Course (1) Cervical radiculopathy: Patient is significant pain CLINICAL MEDICAL TRANSCRIPTIONIST and steroids were administered. His MRI was performed which shows the following C5-C6: There is a 7 x 6 mm right paracentral focal disc protrusion best seen on sagittal image 6 and axial image 15 of 24. This appears to result in mild impression along the right anterior thecal sac. This also likely compresses the exiting right nerve root at this level. I personally discussions with Dr. Bryant with orthospine surgery and also Dr. Cornell with pain management Dr. Bryant and the doctor agreed that we will pursue a possible epidural injection and if this is no improvement may consider surgical approach however we will pursue surgical approach as a last resort (2) Depression: Patient will continue her bupropion and Lexapro (3) Lupus: Lupus is stable at this time on Plaquenil and leflunomide Total Time Total Time Spent Total Time Spent (In Minutes): <30 minutes Discharge Plan Discharge Items Patient Disposition: Home - Self-Care Reason For Visit: INTRACTABLE NECK PAIN Discharge Diagnosis: cervical radiculopathy Discharge Goals: Decrease discomfort and Diagnostic testing Activity: As commented below Activity Comment: no lifting with right arm Non-emergency contact: Primary Care Provider and Specialist Call non-emergency contact if: you have any medication questions Follow-up/Referrals: Jaycee Mustafa DO [Physician] - Arron Bryant DO [Surgeon] - Myra Jones DO [Primary Care Provider] - Diet: Regular Addtl Provider Instructions: please rest and use ice, consider supproting elbow with sling or pillow when sitting follow recommendations that are given to you by pain management Prescriptions: Continued diclofenac sodium [Voltaren] 1 % gel 2 gm TOP QID PRN (Reason: pain) Qty: 100 RF: 3 hydroxychloroquine [Plaquenil] 200 mg tablet 200 mg PO BID RF: 0 cholecalciferol (vitamin D3) 2,000 unit capsule 2,000 units PO DAILY RF: 0 pregabalin [Lyrica] 150 mg capsule 150 mg PO BID Qty: 60 RF: 2 escitalopram oxalate [Lexapro] 20 mg Tablet 20 mg PO QPM RF: 0 leflunomide 20 mg Tablet 20 mg PO DAILY RF: 0 buspirone 10 mg Tablet 10 mg PO BID RF: 0 Changed oxycodone 5 mg tablet 10 mg PO QID PRN (Reason: pain) Qty: 30 RF: 0 Discontinued meloxicam [Mobic] 15 mg tablet 15 mg PO DAILY PRN (Reason: Pain) RF: 0 Stand-Alone Forms: [facility] Discharge Orders: Discharge Order (Routine); Ordered 07/23/18 Ordered By: Socrates Interiano Admission Data Admit Date/Time: 07/22/18 08:54 Attending Provider: Socrates Interiano Admit Provider: Socrates Interiano Primary Care Provider: Myra Jones Other Providers: Estuardo Solomon ; Arron Bryant Service: Medical Other Interventions: Discharge Summary Assessment (RN) Last Done: 07/23/18 07:29 DC Date/Time DO NOT enter until pt leaves facility: 07/23/18 08:03
== END 2018-07-23 08:03 | disposition home or self-care (01) | DRG 552 ==
LOC: 4E 08:54